=== PATIENT | female | born 1945 | race Caucasian/White ===

== ENCOUNTER 2018-04-02 10:36 | Inpatient (IN) | payer MEDICAID ==
[~2018-04-02] VITALS: Ht 165.1 cm; Wt 72.6 kg
[~2018-04-02 10:36] MED LIST: APRESOLINE50 MG ORAL; ASPIR-LOW81 MG ORAL; BUMETANIDE2 MG ORAL; COUMADIN10 MG ORAL; DOC-Q-LACE100 M1 ORAL; DOCUSATE SODIU100 MG ORAL; ECOTRIN81 MG PO; FERROUS SULFAT325 MG ORAL; FUROSEMIDE40 MG ORAL; FUROSEMIDE40 MG/5 ML ORAL; GLIPIZIDE10 MG PO; GLUCOPHAGE500 MG ORAL; LEVAQUIN500 MG ORAL; LIPITOR80 MG ORAL; LISINOPRIL10 MG ORAL; LISINOPRIL5 MG ORAL; METOLAZONE5 MG PO; NORVASC10 MG ORAL; POTASSIUM CHLO10 MEQ ORAL; POTASSIUM CHLOR8 ME2 PO; PROTONIX40 M2 GT; SODIUM CHLORIDE1 GM PO; SPIRONOLACTONE1 EACH ORAL; VENTOLIN HFA18 GM INH
[2018-04-02 10:40] VITALS: BP 134/73
[2018-04-02] MEDS ORDERED: NS 1000ml 2,200 ML IVLG ONE (11:00)
[2018-04-02 11:07] LABS: HEMATOCRIT 26.5 % (37.0-47.0); HEMOGLOBIN 8.9 G/DL (12.0-16.0); MEAN CORPUSCULAR VOLUME 97 FL (80-99); PLATELET COUNT 63 K/UL (150-450); RED BLOOD COUNT 2.74 M/UL (4.20-5.40); RED CELL DISTRIBUTION WIDTH 16.8 % (11.6-14.8); WHITE BLOOD COUNT 8.5 K/UL (4.8-10.8)
[2018-04-02] MEDS ORDERED: WARFARIN SODIUM2 MG ORAL (11:09)
[2018-04-02] MEDS ORDERED: MIRTAZAPINE15 M3 ORAL (11:09)
[2018-04-02] MEDS ORDERED: CARVEDILOL6.25 MG ORAL (11:09)
[2018-04-02] MEDS ORDERED: LOSARTAN POTASS50 MG ORAL (11:09)
[2018-04-02] MEDS ORDERED: FAMOTIDINE20 MG ORAL (11:09)
[2018-04-02] MEDS ORDERED: CALCITRATE + V1 EACH PO (11:09)
[2018-04-02] MEDS ORDERED: XIFAXAN200 MG ORAL (11:09)
[2018-04-02] MEDS ORDERED: VITAMIN D1000 UNI1 ORAL (11:09)
[2018-04-02 11:17] LABS: ANION GAP 10 mmol/L (5-15); BLOOD UREA NITROGEN 51 mg/dL (7-18); CALCIUM 9.6 MG/DL (8.5-10.1); CARBON DIOXIDE 17 MMOL/L (21-32); CHLORIDE 108 MMOL/L (98-107); CREATININE 3.8 MG/DL (0.55-1.30); POTASSIUM 4.5 MMOL/L (3.5-5.1); SODIUM 135 MMOL/L (136-145)
[2018-04-02 11:21] LABS: APPEARANCE,URINE CLEAR; BILIRUBIN, URINE NEGATIVE (NEGATIVE); COLOR,URINE PALE YELLOW; GLUCOSE, URINE (UA) NEGATIVE (NEGATIVE); KETONES,URINE NEGATIVE (NEGATIVE); LEUKOCYTE ESTERASE ,URINE 3+ (NEGATIVE); NITRITE,URINE NEGATIVE (NEGATIVE); PH,URINE 5 (4.5-8.0); PROTEIN,URINE NEGATIVE (NEGATIVE); UROBILINOGEN,URINE NORMAL MG/DL (0.0-1.0)
[2018-04-02 11:31] LABS: ALANINE AMINOTRANSFERASE 21 U/L (12-78); ALBUMIN 2.6 G/DL (3.4-5.0); ALBUMIN/GLOBULIN RATIO 0.7 (1.0-2.7); ALKALINE PHOSPHATASE 91 U/L (46-116); ASPARTATE AMINO TRANSFERASE 6 U/L (15-37); BILIRUBIN,TOTAL 0.7 MG/DL (0.2-1.0); CREATINE KINASE 61 U/L (26-308)
--- NOTE | 2018-04-02 11:44 | Diagnostic Imaging Report ---
Indication: Altered mental status Technique: Continuous helical CT scanning of the head was performed utilizing automated exposure control without intravenous contrast material. Axial and coronal reconstructions were obtained. Comparison: 12/27/2015 CT dose: Total DLP 1411.27 mGycm; CTDI vol 70.38 mGy Findings: There is no acute intracranial hemorrhage, mass effect or cortical edema. The ventricles, cisterns and sulci are prominent consistent with atrophy. Periventricular hypoattenuation is seen, a nonspecific finding. There are atherosclerotic vascular calcifications. Unchanged calcifications noted along the falx. Visualized mastoid air cells and paranasal sinuses are unremarkable. No focal lesions of the bony calvarium or soft tissues of the scalp are seen. Impression: No evidence of acute intracranial hemorrhage, mass effect or cortical edema. MRI may be obtained for more sensitive evaluation as clinically indicated. Atrophy and nonspecific periventricular hypoattenuation suggestive of chronic ischemic microvascular changes. The CT scanner at [facility] is accredited by the [employer] and the scans are performed using protocols designed to limit radiation exposure to as low as reasonably achievable to attain images of sufficient resolution adequate for diagnostic evaluation.
[2018-04-02 12:00] VITALS: BP 156/86
[2018-04-02] MEDS ORDERED: Lactulose 20gm/30ml UDC ORAL ONE (12:00)
[2018-04-02] MEDS ORDERED: NS 55 ML IV ONE (13:20)
[2018-04-02] MEDS ORDERED: cefTRIAXone 1 GM in NS 55 ML IVPB ONE (13:30)
[2018-04-02] MEDS ORDERED: Zolpidem 5mg tab ORAL PRN (13:45)
[2018-04-02] MEDS ORDERED: LORazepam Inj 2mg/ml 1ml IV PRN (13:45)
[2018-04-02] MEDS ORDERED: Miralax 17gm pkt ORAL PRN (13:45)
[2018-04-02] MEDS ORDERED: Mylanta II UD 30ml ORAL PRN (13:45)
[2018-04-02] MEDS ORDERED: Morphine Sulfate 2mg/ml Inj IVP PRN (13:45)
[2018-04-02 14:00] VITALS: BP 142/83
--- NOTE | 2018-04-02 14:54 | Diagnostic Imaging Report ---
Indication: Weakness Technique: XRAY Chest 1v Comparison: 12/27/2015 Findings: Stable cardiomegaly. Dual-lead pacemaker is again noted. There is slight interval change in positioning of pacemaker leads which may be related to images and patient rotation. Correlate clinically to ensure appropriate pacemaker functioning. There is no definite focal airspace consolidation. No pleural effusion or pneumothorax. No acute osseous abnormality. IMPRESSION: Indwelling left-sided dual-lead pacemaker. Apparent interval change in positioning of pacemaker leads compared to the prior exam may be artifactual related to patient rotation on today's exam. Correlate clinically to ensure appropriate pacemaker functioning. Stable cardiomegaly. No focal airspace consolidation, pleural effusion or pneumothorax. No suggestive of pulmonary edema.
--- NOTE | 2018-04-02 15:08 | Emergency Room Report ---
History of Present Illness General Chief Complaint: Altered Level of Consciousness Source: Patient, EMS Present Illness HPI This patient is brought in by her daughter. She has many medical problems to include a cirrhosis and kidney disease. She is brought in by her daughter for altered mental status. Reports that she has recently been admitted to [facility]. She was also in a prison facility. However, she is now at home and she is the primary caregiver. She feels that she can care for her. She has been home for about 3 weeks. She reports that over the past couple days she has been more altered. The patient herself has no specific complaints. There is no report of fever or chills. There is no nausea or vomiting. There are no other complaints. Allergies: Coded Allergies: No Known Allergies (Unverified , 10/04/15) Patient History Past Medical History: see triage record, DM, HTN, CHF, other - Cirrhosis Past Surgical History: pacemaker Social History: Denies: smoking, alcohol use, drug use Reviewed Nursing Documentation: PMH: Agreed; PSxH: Agreed Nursing Documentation-PMH Past Medical History: No History, Except For Hx Cardiac Problems: Yes - CHF, high cholesterol, Hx Hypertension: Yes Hx Pacemaker: No - ANEMIA Hx Asthma: No Hx Diabetes: Yes Hx Cancer: No Hx Gastrointestinal Problems: Yes - cirrosis Hx Neurological Problems: No Review of Systems All Other Systems: negative except mentioned in HPI Physical Exam Vital Signs Date Time Temp Pulse Resp B/P (MAP) Pulse Ox O2 Delivery O2 Flow Rate FiO2 18 10:31 97.9 72 18 128/65 100 Room Air Sp02 EP Interpretation: reviewed, normal General Appearance: no apparent distress, GCS 15, non-toxic, lethargic - but arousable to simple questions., obese Head: normocephalic, atraumatic Eyes: bilateral eye normal inspection, bilateral eye PERRL ENT: hearing grossly normal, normal pharynx, no angioedema, normal voice Neck: full range of motion, supple/symm/no masses Respiratory: chest non-tender, lungs clear, normal breath sounds, no respiratory distress, no retraction, no accessory muscle use, speaking full sentences Cardiovascular #1: regular rate, rhythm, no edema Gastrointestinal: normal bowel sounds, non tender, soft, non-distended, no guarding, no rebound Rectal: deferred Musculoskeletal: back normal, gait/station normal, normal range of motion, non- tender, calf tenderness Neurologic: responsive, sensory intact, speech normal, grossly normal Psychiatric: mood/affect normal, no suicidal/homicidal ideation Skin: normal color, no rash, warm/dry, well hydrated Medical Decision Making Diagnostic Impression: Primary Impression: Hepatic encephalopathy Additional Impressions: Renal failure Hyperglycemia Elevated troponin UTI (urinary tract infection) ER Course This patient has hepatic encephalopathy. The patient's ammonia is 149. The patient also has renal failure. 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 She is also hyperglycemic. I suspect this patient has undiagnosed diabetes. The daughter states that she is not on any diabetic medications. The patient's troponin is elevated. The patient is in renal failure and this may be artifactual versus an NSTEMI. The patient also has a urinary tract infection and was given antibiotics. This patient has a very complicated baseline. She has a very poor prognosis. She is admitted for hepatic encephalopathy and renal failure and elevated troponin. This patient is critically ill. This patient required complex medical decision- making, aggressive intervention, extensive laboratory workup and monitoring. Critical care time: 40 minutes. Please note that this Emergency Department Report was dictated using [employer] technology software, occasionally this can lead to erroneous entry secondary to interpretation by the dictation equipment. Laboratory Tests Test 04/02/18 10:50 04/02/18 11:12 04/02/18 11:50 White Blood Count 8.5 K/UL (4.8-10.8) Red Blood Count 2.74 M/UL (4.20-5.40) L Hemoglobin 8.9 G/DL (12.0-16.0) L Hematocrit 26.5 % (37.0-47.0) L Mean Corpuscular Volume 97 FL (80-99) Mean Corpuscular Hemoglobin 32.4 PG (27.0-31.0) H Mean Corpuscular Hemoglobin Concent 33.5 G/DL (32.0-36.0) Red Cell Distribution Width 16.8 % (11.6-14.8) H Platelet Count 63 K/UL (150-450) L Mean Platelet Volume 9.5 FL (6.5-10.1) Neutrophils (%) (Auto) % (45.0-75.0) Lymphocytes (%) (Auto) % (20.0-45.0) Monocytes (%) (Auto) % (1.0-10.0) Eosinophils (%) (Auto) % (0.0-3.0) Basophils (%) (Auto) % (0.0-2.0) Differential Total Cells Counted 100 Neutrophils % (Manual) 72 % (45-75) Lymphocytes % (Manual) 11 % (20-45) L Monocytes % (Manual) 5 % (1-10) Eosinophils % (Manual) 12 % (0-3) H Basophils % (Manual) 0 % (0-2) Band Neutrophils 0 % (0-8) Platelet Estimate Decreased L Platelet Morphology Normal Hypochromasia 1+ Anisocytosis 1+ Sodium Level 135 MMOL/L (136-145) L Potassium Level 4.5 MMOL/L (3.5-5.1) Chloride Level 108 MMOL/L (98-107) H Carbon Dioxide Level 17 MMOL/L (21-32) L Anion Gap 10 mmol/L (5-15) Blood Urea Nitrogen 51 mg/dL (7-18) H Creatinine 3.8 MG/DL (0.55-1.30) H Estimate Glomerular Filtration Rate mL/min (>60) Glucose Level 260 MG/DL (74-106) H Lactic Acid Level 2.30 mmol/L (0.4-2.0) H 2.10 mmol/L (0.66-2.22) Calcium Level 9.6 MG/DL (8.5-10.1) Total Bilirubin 0.7 MG/DL (0.2-1.0) Aspartate Amino Transferase (AST) 6 U/L (15-37) L Alanine Aminotransferase (ALT) 21 U/L (12-78) Alkaline Phosphatase 91 U/L (46-116) Ammonia 149 umol/L (11-32) H Total Creatine Kinase 61 U/L (26-308) Creatine Kinase MB 1.0 NG/ML (0.0-3.6) Creatine Kinase MB Relative Index 1.6 Troponin I 0.079 ng/mL (0.000-0.056) Total Protein 6.3 G/DL (6.4-8.2) L Albumin 2.6 G/DL (3.4-5.0) L Globulin 3.7 g/dL Albumin/Globulin Ratio 0.7 (1.0-2.7) L Urine Color Pale yellow Urine Appearance Clear Urine pH 5 (4.5-8.0) Urine Specific Crawford 1.010 (1.005-1.035) Urine Protein Negative (NEGATIVE) Urine Glucose (UA) Negative (NEGATIVE) Urine Ketones Negative (NEGATIVE) Urine Blood 2+ (NEGATIVE) H Urine Nitrite Negative (NEGATIVE) Urine Bilirubin Negative (NEGATIVE) Urine Urobilinogen Normal MG/DL (0.0-1.0) Urine Leukocyte Esterase 3+ (NEGATIVE) H Urine RBC 2-4 /HPF (0 - 2) H Urine WBC 10-15 /HPF (0 - 2) H Urine Squamous Epithelial Cells Few /LPF (NONE/OCC) Urine Bacteria Few /HPF (NONE) Microbiology Date/Time Source Procedure Growth Status 04/02/18 11:50 Nasal Nares Influenza Types A,B Antigen (ELIZA) - Final Complete EKG Diagnostic Results Rate: normal Rhythm: other - Paced ST Segments: no acute changes Rhythm Strip Diag. Results EP Interpretation: yes Rate: 70 Rhythm: no PVC's, no ectopy, other - Paced Chest X-Ray Diagnostic Results Chest X-Ray Diagnostic Results : Chest X-Ray Ordered: Yes # of Views/Limited/Complete: 1 View Indication: Other EP Interpretation: Yes Interpretation: no consolidation, no effusion, no pneumothorax, no acute cardiopulmonary disease Impression: No acute disease Electronically Signed by: Catrina Desir DO CT/MRI/US Diagnostic Results CT/MRI/US Diagnostic Results : Imaging Test Ordered: CT head Impression No acute findings. Specifically no intracranial bleed, mass effect or edema. See official report. Last Vital Signs Date Time Temp Pulse Resp B/P (MAP) Pulse Ox O2 Delivery O2 Flow Rate FiO2 04/02/18 12:00 72 17 156/86 100 Room Air 04/02/18 10:40 98.4 Disposition: ADMITTED INPATIENT Condition: Serious Referrals: [facility],REFERRING (PCP) Catrina Desir DO Apr 02, 2018 15:08
[2018-04-02 15:23] LABS: INR 2.9 (0.9-1.1)
[2018-04-02 15:45] VITALS: BP 144/74
[2018-04-02 16:44] LABS: CREATINE KINASE 81 U/L (26-308)
[2018-04-02] MEDS: Lactulose 20gm/30ml UDC ORAL SCH (18:15)
[2018-04-02] MEDS: Cefepime HCl 1 GM in D5W 55 ML IV SCH (18:15)
[2018-04-02 20:00] VITALS: BP 110/75
[2018-04-02] MEDS: Carvedilol 6.25mg Tab ORAL SCH (21:10)
[2018-04-03] VITALS: BP 126/65
[2018-04-03] MEDS: Lactulose 20gm/30ml UDC ORAL SCH ×4 (00:21→18:28)
[2018-04-03 04:00] VITALS: BP 152/64
[2018-04-03 05:56] LABS: HEMATOCRIT 28.8 % (37.0-47.0); HEMOGLOBIN 9.5 G/DL (12.0-16.0); MEAN CORPUSCULAR VOLUME 97 FL (80-99); PLATELET COUNT 64 K/UL (150-450); RED BLOOD COUNT 2.98 M/UL (4.20-5.40); RED CELL DISTRIBUTION WIDTH 17.2 % (11.6-14.8); WHITE BLOOD COUNT 8.6 K/UL (4.8-10.8)
[2018-04-03 06:10] LABS: ANION GAP 14 mmol/L (5-15); BLOOD UREA NITROGEN 53 mg/dL (7-18); CALCIUM 9.2 MG/DL (8.5-10.1); CARBON DIOXIDE 14 MMOL/L (21-32); CHLORIDE 112 MMOL/L (98-107); CREATININE 3.6 MG/DL (0.55-1.30); POTASSIUM 4.2 MMOL/L (3.5-5.1); SODIUM 140 MMOL/L (136-145)
[2018-04-03 06:13] LABS: AMMONIA 91 umol/L (11-32)
[2018-04-03 06:25] LABS: ALANINE AMINOTRANSFERASE 13 U/L (12-78); ALBUMIN 2.5 G/DL (3.4-5.0); ALBUMIN/GLOBULIN RATIO 0.8 (1.0-2.7); ALKALINE PHOSPHATASE 85 U/L (46-116); ASPARTATE AMINO TRANSFERASE 15 U/L (15-37); BILIRUBIN,TOTAL 0.7 MG/DL (0.2-1.0); CHOLESTEROL 54 MG/DL (< 200); HDL CHOLESTEROL 27 MG/DL (40-60); TRIGLYCERIDES 47 MG/DL (30-150)
[2018-04-03 08:00] VITALS: BP 130/90
[2018-04-03] MEDS ORDERED: HydrALAZINE 50mg tab ORAL SCH (09:00)
[2018-04-03] MEDS ORDERED: Phytonadione 10 mg/mL 1ml amp SUBQ ONE (10:00)
[2018-04-03] MEDS: Carvedilol 6.25mg Tab ORAL SCH ×2 (10:54→21:03)
[2018-04-03 12:00] VITALS: BP 149/122
[2018-04-03] MEDS: NovoLOG Insulin Flexpen SUBQ SCH ×3 (12:34→21:05)
--- NOTE | 2018-04-03 14:42 | GI Initial Consult Note ---
History of Present Illness General Date patient seen: Apr 03, 2018 Time patient seen: 14:37 Reason for Hospitalization: Altered Level of Consciousness Referring physician: ANNALISA HALL Reason for Consultation: Hepatic encephalopathy Present Illness HPI This patient is brought in by her daughter. She has many medical problems to include a cirrhosis and kidney disease. She is brought in by her daughter for altered mental status. Reports that she has recently been admitted to [facility]. She was also in a correction facility. However, she is now at home and she is the primary caregiver. She feels that she can care for her. She has been home for about 3 weeks. She reports that over the past couple days she has been more altered. The patient herself has no specific complaints. There is no report of fever or chills. There is no nausea or vomiting. There are no other complaints. GI consulted for hepatic encephalopathy. EVA sanders, JAVI. Daughter at bedside stated that the patient has a history of nonalcoholic cirrhosis. Was told by a doctor during a recent admission to [facility] to stop the lactulose. The patient was off of the lactulose for approximately 4 days, developed encephalopathy as a result. The daughter states that the patient had a recent abdominal ultrasound approximately 2 weeks ago. Unknown history of endoscopic colonoscopy at this time. Patient presents today with anemia, hyper coagulopathy and elevated alkaline phosphatase. No transaminitis noted. The patient's daughter is unsure if she is diabetic. Home Meds Reported Medications Warfarin Sod* (WARFARIN SOD*) 2 Mg Tablet, 2 MG ORAL DAILY, TAB 04/02/18 Rifaximin* (XIFAXAN*) 200 Mg Tablet, 200 MG ORAL THREE TIMES A DAY for 30 Days, MG 0 Refills 04/02/18 Mirtazapine* (MIRTAZAPINE*) 15 Mg Tablet, 15 MG ORAL BEDTIME, TAB 04/02/18 Losartan Potassium* (LOSARTAN POTASSIUM*) 50 Mg Tablet, 50 MG ORAL DAILY, TAB 04/02/18 Famotidine (FAMOTIDINE) 20 Mg Tablet, 20 MG ORAL DAILY, #30 TAB 0 Refills 04/02/18 Cholecalciferol (Vitamin D3)* (VITAMIN D*) 1,000 Unit Tablet, 2000 UNITS ORAL DAILY, #30 TAB 0 Refills 04/02/18 Carvedilol* (CARVEDILOL*) 6.25 Mg Tablet, 6.25 MG ORAL EVERY 12 HOURS, TAB 04/02/18 Calcium Citrate/Vitamin D3 (CALCITRATE + VIT D CAPLET) 1 Each Tablet, 1 EACH PO , TAB 04/02/18 Spironolact/Hydrochlorothiazid (SPIRONOLACTONE-HCTZ 25-25 TAB) 1 Each Tablet, 1 TAB ORAL TWICE A DAY, TAB 12/27/15 Bumetanide* (BUMETANIDE*) 2 Mg Tablet, 2 MG ORAL DAILY, TAB 12/27/15 Pantoprazole Sodium (Protonix) 40 Mg Granpkt.dr, 40 MG GT DAILY, PKT 12/27/15 Warfarin Sod* (COUMADIN*) 10 Mg Tablet, 10 MG ORAL TWICE A DAY, TAB 12/27/15 Metformin Hcl* (GLUCOPHAGE*) 500 Mg Tablet, 500 MG ORAL TWICE A DAY, #60 TAB 10/17/15 Lisinopril* (LISINOPRIL*) 10 Mg Tablet, 10 MG ORAL DAILY, TAB 10/16/15 Ferrous Sulfate* (FERROUS SULFATE*) 325 Mg Tablet, 325 MG ORAL THREE TIMES A DAY , #30 TAB 0 Refills 10/16/15 Potassium Chloride* (K-DUR*) 10 Meq Capsule.er, 10 MEQ ORAL DAILY, #7 TAB 0 Refills 10/06/15 Docusate Sodium* (DOCUSATE SODIUM*) 100 Mg Capsule, 100 MG ORAL TWICE A DAY, CAP 10/06/15 Aspirin (ECOTRIN) 81 Mg Tablet.dr, 81 MG PO DAILY, TAB 10/06/15 Albuterol Sulfate (VENTOLIN HFA) 18 Gm Hfa.aer.ad, 2 PUFFS INH EVERY 6 HOURS, # 18 GM 0 Refills 10/04/15 Hydralazine HCl (Hydralazine HCl) 50 Mg Tablet, 50 MG ORAL DAILY, TAB 10/04/15 Amlodipine Besylate (Norvasc) 10 Mg Tablet, 5 MG ORAL DAILY, TAB 10/04/15 Docusate Sodium (DOC-Q-LACE) 100 Mg Capsule, 100 MG ORAL DAILY, #30 CAP 0 Refills 10/04/15 Glipizide (GLIPIZIDE) 10 Mg Tablet, 10 MG PO, TAB 10/04/15 Furosemide (FUROSEMIDE) 40 Mg/5 Ml Solution, 80 MG ORAL DAILY, ML 10/04/15 Atorvastatin (Lipitor) 80 Mg Tablet, 80 MG ORAL BEDTIME, #30 TAB 0 Refills 10/04/15 Metolazone (METOLAZONE) 5 Mg Tablet, 5 MG PO, TAB 10/04/15 Med list reviewed/reconciled: Yes Allergies: Coded Allergies: No Known Allergies (Unverified , 10/04/15) Patient History History Provided By: Family Member, Medical Record PMH Narrative Past Medical History: see triage record, DM, HTN, CHF, other - Cirrhosis Past Surgical History: pacemaker Social History: Denies: smoking, alcohol use, drug use Reviewed Nursing Documentation: PMH: Agreed; PSxH: Agreed Nursing Documentation-PMH Past Medical History: No History, Except For Hx Cardiac Problems: Yes - CHF, high cholesterol, Hx Hypertension: Yes Hx Pacemaker: No - ANEMIA Hx Asthma: No Hx Diabetes: Yes Hx Cancer: No Hx Gastrointestinal Problems: Yes - cirrosis Hx Neurological Problems: No Social History: Denies: smoking, alcohol use, drug use, other Review of Systems All Other Systems: negative except mentioned in HPI Physical Exam Vital Signs Date Time Temp Pulse Resp B/P (MAP) Pulse Ox O2 Delivery O2 Flow Rate FiO2 04/02/18 10:31 97.9 72 18 128/65 100 Room Air Sp02 EP Interpretation: reviewed, normal Labs Laboratory Tests Test 04/03/18 05:40 White Blood Count 8.6 K/UL (4.8-10.8) Red Blood Count 2.98 M/UL (4.20-5.40) L Hemoglobin 9.5 G/DL (12.0-16.0) L Hematocrit 28.8 % (37.0-47.0) L Mean Corpuscular Volume 97 FL (80-99) Mean Corpuscular Hemoglobin 31.8 PG (27.0-31.0) H Mean Corpuscular Hemoglobin Concent 32.9 G/DL (32.0-36.0) Red Cell Distribution Width 17.2 % (11.6-14.8) H Platelet Count 64 K/UL (150-450) L Mean Platelet Volume 8.8 FL (6.5-10.1) Neutrophils (%) (Auto) % (45.0-75.0) Lymphocytes (%) (Auto) % (20.0-45.0) Monocytes (%) (Auto) % (1.0-10.0) Eosinophils (%) (Auto) % (0.0-3.0) Basophils (%) (Auto) % (0.0-2.0) Sodium Level 140 MMOL/L (136-145) Potassium Level 4.2 MMOL/L (3.5-5.1) Chloride Level 112 MMOL/L (98-107) H Carbon Dioxide Level 14 MMOL/L (21-32) L Anion Gap 14 mmol/L (5-15) Blood Urea Nitrogen 53 mg/dL (7-18) H Creatinine 3.6 MG/DL (0.55-1.30) H Estimat Glomerular Filtration Rate mL/min (>60) Glucose Level 221 MG/DL (74-106) H Calcium Level 9.2 MG/DL (8.5-10.1) Total Bilirubin 0.7 MG/DL (0.2-1.0) Aspartate Amino Transf (AST/SGOT) 15 U/L (15-37) Alanine Aminotransferase (ALT/SGPT) 13 U/L (12-78) Alkaline Phosphatase 85 U/L (46-116) Ammonia 91 umol/L (11-32) H Total Protein 5.8 G/DL (6.4-8.2) L Albumin 2.5 G/DL (3.4-5.0) L Globulin 3.3 g/dL Albumin/Globulin Ratio 0.8 (1.0-2.7) L Triglycerides Level 47 MG/DL (30-150) Cholesterol Level 54 MG/DL (< 200) LDL Cholesterol 32 mg/dL (<100) HDL Cholesterol 27 MG/DL (40-60) L Cholesterol/HDL Ratio 2.0 (3.3-4.4) L Thyroid Stimulating Hormone (TSH) 2.053 uiU/mL (0.358-3.740) General Appearance: well appearing, no apparent distress, alert Head: normocephalic EENT: PERRL/EOMI, normal ENT inspection Neck: supple Respiratory: normal breath sounds, no respiratory distress Cardiovascular: normal rate Gastrointestinal: normal inspection, non tender, soft, normal bowel sounds, non -distended Rectal: deferred Genitourinary: no CVA tenderness Musculoskeletal: normal inspection, back normal Neurologic: alert Skin: normal inspection, normal color, no rash, warm/dry, palpation normal, well hydrated Lymphatic: normal inspection, no adenopathy Current Medications Current Medications Medications (Trade) Dose Ordered Sig/Anum Route PRN Reason Start Time Stop Time Status Last Admin Dose Admin Acetaminophen (Tylenol) 650 mg Q4H PRN ORAL fever 04/02/18 13:45 05/02/18 13:44 Al Hydroxide/Mg Hydroxide (Mylanta II) 30 ml Q6H PRN ORAL dyspepsia 04/02/18 13:45 05/02/18 13:44 Amlodipine Besylate (Norvasc) 5 mg DAILY ORAL 04/03/18 09:00 05/03/18 08:59 04/03/18 10:54 Carvedilol (Coreg) 6.25 mg EVERY 12 HOURS ORAL 04/02/18 21:00 05/02/18 20:59 04/03/18 10:54 Cefepime HCl 1 gm/ Dextrose 55 ml @ 110 mls/hr Q24H IV 04/02/18 17:00 04/09/18 16:59 04/02/18 18:15 Dextrose (Dextrose 50%) 25 ml Q30M PRN IV Hypoglycemia 04/03/18 07:15 05/03/18 07:14 Dextrose (Dextrose 50%) 50 ml Q30M PRN IV Hypoglycemia 04/03/18 07:15 05/03/18 07:14 Hydralazine HCl (Apresoline) 50 mg DAILY ORAL 04/03/18 09:00 05/03/18 08:59 04/03/18 14:17 Insulin Aspart (NovoLOG) BEFORE MEALS AND HS SUBQ 04/03/18 11:30 05/03/18 11:29 04/03/18 12:34 Lactulose (Cephulac) 30 gm Q6HR ORAL 04/02/18 18:00 05/02/18 17:59 04/03/18 05:40 Lorazepam (Ativan 2mg/ml 1ml) 0.5 mg Q4H PRN IV For Anxiety 04/02/18 13:45 04/09/18 13:44 Mirtazapine (Remeron) 15 mg BEDTIME ORAL 04/02/18 21:00 05/02/18 20:59 04/02/18 21:10 Morphine Sulfate (Morphine Sulfate) 2 mg Q4H PRN IVP For Pain 04/02/18 13:45 04/09/18 13:44 Ondansetron HCl (Zofran) 4 mg Q6H PRN IVP Nausea & Vomiting 04/02/18 13:45 05/02/18 13:44 Polyethylene Glycol (Miralax) 17 gm HSPRN PRN ORAL Constipation 04/02/18 13:45 05/02/18 13:44 Zolpidem Tartrate (Ambien) 5 mg HSPRN PRN ORAL Insomnia 04/02/18 13:45 04/09/18 13:44 GI: Plan Problems: (1) Liver cirrhosis (2) Hypoalbuminemia (3) Hepatic encephalopathy (4) Hyperglycemia Plan Patient to be scheduled for paracentesis, send out to rule out SBP. Continue the patient on lactulose 30 mg 3 times daily, add Xifaxan 550 mg twice daily anemia work up OB stool r/o GI bleed monitor H&H, prn transfusions bowel regime ppi fu labs, ammonia levels, HG A1c, hepatitis panel Discussed with Dr. Frausto. Thank you for this patient referral, we will follow. The patient was seen and examined at bedside and all new and available data was reviewed in the patients chart. I agree with the above findings, impression and plan. (Patient seen earlier today. Signature stamp does not reflect patient encounter time.). - MD Sanjuanita WingBanner Casa Grande Medical CenterRayray OSEI Apr 03, 2018 14:42
[2018-04-03 16:00] VITALS: BP 111/49
--- NOTE | 2018-04-03 16:25 | History & Physical ---
History and Physical History & Physicial Dictated for Int Med-Dr Clay no. [id number] Amandeep Arce MD Apr 03, 2018 16:25
[2018-04-03] MEDS: Cefepime HCl 1 GM in D5W 55 ML IV SCH (17:49)
--- NOTE | 2018-04-03 18:24 | Consultation ---
Consult Note Consult Note HPI This patient is brought in by her daughter. She has many medical problems to include a cirrhosis and kidney disease. She is brought in by her daughter for altered mental status. Reports that she has recently been admitted to [facility]. She was also in a intermediate facility. However, she is now at home and she is the primary caregiver. She feels that she can care for her. She has been home for about 3 weeks. She reports that over the past couple days she has been more altered. The patient herself has no specific complaints. There is no report of fever or chills. There is no nausea or vomiting. There are no other complaints. No Known Allergies (Unverified , 10/04/15) Past Medical History: see triage record, DM, HTN, CHF, other - Cirrhosis Past Surgical History: pacemaker Social History: Denies: smoking, alcohol use, drug use Reviewed Nursing Documentation: PMH: Agreed; PSxH: Agreed Past Medical History: No History, Except For Hx Cardiac Problems: Yes - CHF, high cholesterol, Hx Hypertension: Yes Hx Pacemaker: No - ANEMIA Hx Diabetes: Yes Hx Gastrointestinal Problems: Yes - cirrosis examined data reviewed Assessment/Plan Renal failure- acute on Chronic Diabetic nephropathy Anemia of CKD Pacer Pacer Metabolic encephalopathy DM OOC Elevated Troponin Cellulitis and PVD legs UTI Devlin keep BP and BS under control Anemia dhaliwal Avoid nephrotoxics [facility] discussed with Elie Cam MD Apr 03, 2018 18:24
[2018-04-03 20:00] VITALS: BP 115/52
--- NOTE | 2018-04-03 22:00 | History and Physical Report ---
DATE OF ADMISSION: 04/02/2018 CHIEF COMPLAINT: The patient is a 72-year-old female with history of chronic renal failure and cirrhosis, who presents with a chief complaint of altered mental status. HISTORY OF PRESENT ILLNESS: The patient has a history of cirrhosis of liver. The patient also has a history of chronic renal failure. The patient apparently was at [facility] in February for pneumonia. The patient was discharged home. The patient's son is at the bedside. The son states the patient became altered yesterday. The patient was alert and oriented to self only. The patient was transferred to [facility] for evaluation. The patient is admitted for altered mental status, rule out hepatic encephalopathy. REVIEW OF SYSTEMS: Unable to assess secondary to the patient's mental status. PAST MEDICAL HISTORY: Significant for; 1. Hypertension. 2. Diabetes type 2. 3. Chronic renal failure. 4. Anemia. 5. Cirrhosis of liver. PAST SURGICAL HISTORY: Significant for pacemaker implantation. CURRENT MEDICATIONS: 1. Atorvastatin 40 mg p.o. daily. 2. Bumetanide 1 mg p.o. daily. 3. Calcium carbonate plus vitamin D one tablet p.o. twice daily. 4. Carvedilol 6.25 mg p.o. twice daily. 5. Vitamin D 2000 international units p.o. daily. 6. Pepcid 20 mg p.o. daily. 7. Iron sulfate 325 mg p.o. daily. 8. Lactulose 20 mg p.o. 3 times daily. 9. Losartan 50 mg p.o. daily. 10. Mirtazapine 15 mg p.o. at bedtime. 11. Zofran 4 mg p.o. q.8 hours. 12. Rifaximin 200 mg p.o. 3 tablets p.o. twice daily. 13. Coumadin 2 mg p.o. daily. ALLERGIES: No known drug allergies. SOCIAL HISTORY: The patient is a . The patient lives with her adult daughter. The patient lives in [place] with her daughter. The patient denies tobacco or alcohol use. PHYSICAL EXAMINATION: VITAL SIGNS: Temperature 98.1, respirations 20, pulse 70, and blood pressure 110/75. GENERAL: The patient is a well-developed and well-nourished, obese, female, in no apparent distress. HEENT: Eyes, pupils equal and responsive to light and accommodation. Extraocular movements are intact. NECK: Supple without lymphadenopathy. CHEST: Lungs are clear to auscultation bilaterally without wheezes or rales. CARDIOVASCULAR: Regular rhythm and rate. S1 and S2 normal without murmurs, rubs, or gallops. ABDOMEN: Soft, nontender, and nondistended. Positive bowel sounds. No evidence of hepatosplenomegaly. Currently, no rebound or guarding noted. EXTREMITIES: Negative for clubbing, cyanosis, or edema. RECTAL/GENITAL: Refused. NEUROLOGIC: Cranial nerves II through XII are grossly intact without focal deficits. Motor strength is 5/5 bilaterally. Deep tendon reflexes are 2+ plantar. LABORATORY STUDIES: WBC 8.5, hemoglobin 8.9, hematocrit 26.5, and platelets 63,000, sodium 135, potassium 4.5, chloride 108, CO2 17, BUN 51, creatinine 3.8, and glucose 260. Troponin elevated at 0.079. Chest x-ray reported as consistent with pulmonary edema. Head CT showed no acute disease. Ammonia level is elevated at 149. ASSESSMENT: This is a 72-year-old female. 1. Altered mental status. 2. Hepatic encephalopathy. 3. Diabetes, type 2. 4. Atrial fibrillation. 5. Hypertension. 6. Congestive heart failure, [place] Heart Association class III. 7. Chronic renal failure, stage 3. 8. Cirrhosis of liver. TREATMENT: 1. Cirrhosis of liver/hepatic encephalopathy. A Gastroenterology consultation has been obtained with Dr. Liam Frausto. We will follow recommendations of Gastroenterology. 2. Altered mental status. This may be secondary to hepatic encephalopathy versus sepsis. We will follow recommendations of Gastroenterology. 3. Diabetes, type 2. The patient is currently off antihyperglycemic medication. 4. Atrial fibrillation. Continue Coumadin as above. 5. Hypertension. Continue losartan as above. 6. Congestive heart failure, [place] Heart Association class III. 7. Chronic renal failure, stage 3. A Nephrology consultation has been obtained with Dr. Brooks. Amandeep Arce M.D. DR: SASHA JOB#: [id number] CC:
[2018-04-03] MEDS: HydrALAZINE 10mg Tab ORAL SCH (22:13)
--- NOTE | 2018-04-03 23:36 | Consultation ---
History of Present Illness General Chief Complaint: Altered Level of Consciousness Referring physician: ANNALISA HALL Reason for Consultation: Hepatic encephalopathy Present Illness HPI 72-year-old female with history of depression anxiety chronic renal failure and cirrhosis, who presents with a chief complaint of altered mental status. the pt has been confused family in room the pt has waxing and waning of consciousness. the pt has memory impairment. Allergies: Coded Allergies: No Known Allergies (Unverified , 10/04/15) Medication History Scheduled Albuterol Sulfate (Ventolin Hfa), 2 PUFFS INH EVERY 6 HOURS, (Reported) Amlodipine Besylate (Norvasc), 5 MG ORAL DAILY, (Reported) Aspirin (Ecotrin), 81 MG PO DAILY, (Reported) Atorvastatin (Lipitor), 80 MG ORAL BEDTIME, (Reported) Bumetanide* (Bumetanide*), 2 MG ORAL DAILY, (Reported) Carvedilol* (Carvedilol*), 6.25 MG ORAL EVERY 12 HOURS, (Reported) Cholecalciferol (Vitamin D3)* (Vitamin D*), 2,000 UNITS ORAL DAILY, (Reported) Docusate Sodium (Doc-Q-Lace), 100 MG ORAL DAILY, (Reported) Docusate Sodium* (Docusate Sodium*), 100 MG ORAL TWICE A DAY, (Reported) Famotidine (Famotidine), 20 MG ORAL DAILY, (Reported) Ferrous Sulfate* (Ferrous Sulfate*), 325 MG ORAL THREE TIMES A DAY, (Reported) Furosemide (Furosemide), 80 MG ORAL DAILY, (Reported) Hydralazine HCl (Hydralazine HCl), 50 MG ORAL DAILY, (Reported) Lisinopril* (Lisinopril*), 10 MG ORAL DAILY, (Reported) Losartan Potassium* (Losartan Potassium*), 50 MG ORAL DAILY, (Reported) Metformin Hcl* (Glucophage*), 500 MG ORAL TWICE A DAY, (Reported) Mirtazapine* (Mirtazapine*), 15 MG ORAL BEDTIME, (Reported) Pantoprazole Sodium (Protonix), 40 MG GT DAILY, (Reported) Potassium Chloride* (K-Dur*), 10 MEQ ORAL DAILY, (Reported) Rifaximin* (Xifaxan*), 200 MG ORAL THREE TIMES A DAY, (Reported) Spironolact/Hydrochlorothiazid (Spironolactone-Hctz 25-25 Tab), 1 TAB ORAL TWICE A DAY, (Reported) Warfarin Sod* (Coumadin*), 10 MG ORAL TWICE A DAY, (Reported) Warfarin Sod* (Warfarin Sod*), 2 MG ORAL DAILY, (Reported) Miscellaneous Medications Calcium Citrate/Vitamin D3 (Calcitrate + Vit D Caplet), 1 EACH PO, (Reported) Glipizide (Glipizide), 10 MG PO, (Reported) Metolazone (Metolazone), 5 MG PO, (Reported) Patient History Limited by: medical condition History Provided By: Family Member, Medical Record, PMD Healthcare decision maker Resuscitation status Full Code Advanced Directive on File No Past Medical/Surgical History Past Medical/Surgical History: (1) Decreased urine volume (2) Congestive heart failure (3) Hyponatremia (4) Hypoglycemia (5) ARF (acute renal failure) (6) Anemia (7) CHF (congestive heart failure) (8) Venous stasis of both lower extremities (9) HTN (hypertension) (10) Hyperglycemia (11) Renal failure (12) UTI (urinary tract infection) (13) Elevated troponin (14) Hepatic encephalopathy (15) Liver cirrhosis (16) Hypoalbuminemia Review of Systems Psychiatric: Reports: anxiety, depressed feelings Physical Exam General Appearance: confused, mild distress, agitated Last 24 Hour Vital Signs Date Time Temp Pulse Resp B/P (MAP) Pulse Ox O2 Delivery O2 Flow Rate FiO2 04/03/18 22:13 136/54 04/03/18 21:03 98 115/52 04/03/18 20:00 97.7 77 18 115/52 (73) 98 04/03/18 20:00 72 04/03/18 16:11 71 04/03/18 16:00 97.8 71 18 111/49 (69) 99 04/03/18 14:17 149/122 04/03/18 12:00 98.3 75 16 149/122 (131) 97 04/03/18 11:40 70 04/03/18 10:54 73 130/90 04/03/18 10:54 73 130/90 04/03/18 08:30 Room Air 04/03/18 08:00 97.7 73 16 130/90 (103) 98 04/03/18 07:45 71 04/03/18 04:00 71 04/03/18 04:00 98.2 72 19 152/64 (93) 99 04/03/18 00:00 70 04/03/18 00:00 97.6 71 19 126/65 (85) 100 Intake and Output 04/02/18 04/03/18 19:00 07:00 Intake Total 2255 ml Balance 2255 ml IV Total 2255 ml # Voids 3 2 # Bowel Movements 4 4 Laboratory Tests Test 04/03/18 05:40 04/03/18 06:40 White Blood Count 8.6 K/UL (4.8-10.8) Red Blood Count 2.98 M/UL (4.20-5.40) L Hemoglobin 9.5 G/DL (12.0-16.0) L Hematocrit 28.8 % (37.0-47.0) L Mean Corpuscular Volume 97 FL (80-99) Mean Corpuscular Hemoglobin 31.8 PG (27.0-31.0) H Mean Corpuscular Hemoglobin Concent 32.9 G/DL (32.0-36.0) Red Cell Distribution Width 17.2 % (11.6-14.8) H Platelet Count 64 K/UL (150-450) L Mean Platelet Volume 8.8 FL (6.5-10.1) Neutrophils (%) (Auto) % (45.0-75.0) Lymphocytes (%) (Auto) % (20.0-45.0) Monocytes (%) (Auto) % (1.0-10.0) Eosinophils (%) (Auto) % (0.0-3.0) Basophils (%) (Auto) % (0.0-2.0) Sodium Level 140 MMOL/L (136-145) Potassium Level 4.2 MMOL/L (3.5-5.1) Chloride Level 112 MMOL/L (98-107) H Carbon Dioxide Level 14 MMOL/L (21-32) L Anion Gap 14 mmol/L (5-15) Blood Urea Nitrogen 53 mg/dL (7-18) H Creatinine 3.6 MG/DL (0.55-1.30) H Estimat Glomerular Filtration Rate mL/min (>60) Glucose Level 221 MG/DL (74-106) H Calcium Level 9.2 MG/DL (8.5-10.1) Total Bilirubin 0.7 MG/DL (0.2-1.0) Aspartate Amino Transf (AST/SGOT) 15 U/L (15-37) Alanine Aminotransferase (ALT/SGPT) 13 U/L (12-78) Alkaline Phosphatase 85 U/L (46-116) Ammonia 91 umol/L (11-32) H Total Protein 5.8 G/DL (6.4-8.2) L Albumin 2.5 G/DL (3.4-5.0) L Globulin 3.3 g/dL Albumin/Globulin Ratio 0.8 (1.0-2.7) L Triglycerides Level 47 MG/DL (30-150) Cholesterol Level 54 MG/DL (< 200) LDL Cholesterol 32 mg/dL (<100) HDL Cholesterol 27 MG/DL (40-60) L Cholesterol/HDL Ratio 2.0 (3.3-4.4) L Thyroid Stimulating Hormone (TSH) 2.053 uiU/mL (0.358-3.740) C-Reactive Protein, Quantitative 3.2 mg/dL (0.00-0.90) H Height (Feet): 5 Height (Inches): 5.00 Weight (Pounds): 160 Medications Current Medications Medications (Trade) Dose Ordered Sig/Anum Route PRN Reason Start Time Stop Time Status Last Admin Dose Admin Acetaminophen (Tylenol) 650 mg Q4H PRN ORAL fever 04/02/18 13:45 05/02/18 13:44 Amlodipine Besylate (Norvasc) 5 mg DAILY ORAL 04/04/18 09:00 05/03/18 08:59 Carvedilol (Coreg) 6.25 mg EVERY 12 HOURS ORAL 04/02/18 21:00 05/02/18 20:59 04/03/18 21:03 Cefepime HCl 1 gm/ Dextrose 55 ml @ 110 mls/hr Q24H IV 04/02/18 17:00 04/09/18 16:59 04/03/18 17:49 Dextrose (Dextrose 50%) 25 ml Q30M PRN IV Hypoglycemia 04/03/18 07:15 05/03/18 07:14 Dextrose (Dextrose 50%) 50 ml Q30M PRN IV Hypoglycemia 04/03/18 07:15 05/03/18 07:14 Hydralazine HCl (Apresoline) 10 mg Q8HR ORAL 04/03/18 22:00 05/03/18 08:59 04/03/18 22:13 Insulin Aspart (NovoLOG) BEFORE MEALS AND HS SUBQ 04/03/18 11:30 05/03/18 11:29 04/03/18 21:05 Lactulose (Cephulac) 30 gm Q6HR ORAL 04/02/18 18:00 05/02/18 17:59 04/03/18 18:28 Lorazepam (Ativan 2mg/ml 1ml) 0.5 mg Q4H PRN IV For Anxiety 04/02/18 13:45 04/09/18 13:44 Mirtazapine (Remeron) 15 mg BEDTIME ORAL 04/02/18 21:00 05/02/18 20:59 04/03/18 21:02 Morphine Sulfate (Morphine Sulfate) 2 mg Q4H PRN IVP For Pain 04/02/18 13:45 04/09/18 13:44 Ondansetron HCl (Zofran) 4 mg Q6H PRN IVP Nausea & Vomiting 04/02/18 13:45 05/02/18 13:44 Pantoprazole (Protonix) 40 mg EVERY 12 HOURS ORAL 04/03/18 21:00 05/03/18 20:59 04/03/18 21:02 Polyethylene Glycol (Miralax) 17 gm HSPRN PRN ORAL Constipation 04/02/18 13:45 05/02/18 13:44 Rifaximin (Xifaxan) 550 mg EVERY 12 HOURS ORAL 04/03/18 21:00 04/10/18 20:59 04/03/18 21:01 Zolpidem Tartrate (Ambien) 5 mg HSPRN PRN ORAL Insomnia 04/02/18 13:45 04/09/18 13:44 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 Assessment/Plan seroquel prn remron 15mg qhs dc Gabe Jacob MD Apr 03, 2018 23:36
[2018-04-04] VITALS (7 sets, daily range): BP systolic 108–132; BP diastolic 52–80
[2018-04-04] MEDS: Lactulose 20gm/30ml UDC ORAL SCH ×5 (00:25→23:26)
[2018-04-04] MEDS: HydrALAZINE 10mg Tab ORAL SCH ×3 (06:21→23:25)
[2018-04-04] MEDS: NovoLOG Insulin Flexpen SUBQ SCH ×4 (06:29→21:55)
[2018-04-04 06:54] LABS: INR 1.7 (0.9-1.1)
[2018-04-04 07:09] LABS: AMMONIA 65 umol/L (11-32)
[2018-04-04 07:11] LABS: HEMATOCRIT 24.6 % (37.0-47.0); HEMOGLOBIN 8.3 G/DL (12.0-16.0); MEAN CORPUSCULAR VOLUME 94 FL (80-99); PLATELET COUNT 60 K/UL (150-450); RED BLOOD COUNT 2.61 M/UL (4.20-5.40); RED CELL DISTRIBUTION WIDTH 17.3 % (11.6-14.8); WHITE BLOOD COUNT 6.4 K/UL (4.8-10.8)
[2018-04-04 07:25] LABS: ALANINE AMINOTRANSFERASE 19 U/L (12-78); ALBUMIN 2.7 G/DL (3.4-5.0); ALBUMIN/GLOBULIN RATIO 0.8 (1.0-2.7); ALKALINE PHOSPHATASE 84 U/L (46-116); ANION GAP 15 mmol/L (5-15); ASPARTATE AMINO TRANSFERASE 18 U/L (15-37); BLOOD UREA NITROGEN 51 mg/dL (7-18); CALCIUM 9.5 MG/DL (8.5-10.1); CARBON DIOXIDE 15 MMOL/L (21-32); CHLORIDE 116 MMOL/L (98-107); CREATININE 3.5 MG/DL (0.55-1.30); FERRITIN 1177 NG/ML (8-388); POTASSIUM 3.7 MMOL/L (3.5-5.1); SODIUM 145 MMOL/L (136-145)
[2018-04-04 07:53] LABS: PHOSPHORUS 3.3 MG/DL (2.5-4.9)
[2018-04-04 09:07] LABS: % IRON SATURATION 96 % (15-50); IRON 133 ug/dL (50-175); TOTAL IRON BINDING CAPACITY 138 ug/dL (250-450)
--- NOTE | 2018-04-04 09:15 | General Progress Note ---
Assessment/Plan Problem List: (1) HTN (hypertension) ICD Codes: I10 - Essential (primary) hypertension SNOMED: 88457217 (2) Anemia ICD Codes: D64.9 - Anemia, unspecified SNOMED: 013976626 (3) Liver cirrhosis ICD Codes: K74.60 - Unspecified cirrhosis of liver SNOMED: 76221421 (4) Hepatic encephalopathy ICD Codes: K72.90 - Hepatic failure, unspecified without coma SNOMED: 88327481, 756911367, 080943960 Assessment/Plan lactulose xifaxan ppi fu labs fu cardiology Subjective ROS Limited/Unobtainable: Yes Allergies: Coded Allergies: No Known Allergies (Unverified , 10/04/15) Objective Last 24 Hour Vital Signs Date Time Temp Pulse Resp B/P (MAP) Pulse Ox O2 Delivery O2 Flow Rate FiO2 04/04/18 09:00 97.7 71 20 120/52 (74) 97 04/04/18 06:21 157/67 04/04/18 04:00 73 04/04/18 04:00 97.6 75 18 131/64 (86) 98 04/04/18 01:00 Room Air 04/04/18 00:00 97.5 78 18 132/80 (97) 98 04/04/18 00:00 78 04/03/18 22:13 136/54 04/03/18 21:03 98 115/52 04/03/18 21:00 Room Air 04/03/18 20:00 97.7 77 18 115/52 (73) 98 04/03/18 20:00 72 04/03/18 16:11 71 04/03/18 16:00 97.8 71 18 111/49 (69) 99 04/03/18 14:17 149/122 04/03/18 12:00 98.3 75 16 149/122 (131) 97 04/03/18 11:40 70 04/03/18 10:54 73 130/90 04/03/18 10:54 73 130/90 Intake and Output 04/03/18 04/04/18 18:59 06:59 Intake Total 280 ml Balance 280 ml Intake Oral 280 ml # Voids 3 # Bowel Movements 3 3 Laboratory Tests 04/04/18 04:30: Stool Occult Blood [Pending] 04/04/18 06:10: White Blood Count 6.4, Red Blood Count 2.61L, Hemoglobin 8.3L, Hematocrit 24.6L , Mean Corpuscular Volume 94, Mean Corpuscular Hemoglobin 31.7H, Mean Corpuscular Hemoglobin Concent 33.6, Red Cell Distribution Width 17.3H, Platelet Count 60L, Mean Platelet Volume 8.6, Neutrophils (%) (Auto) , Lymphocytes (%) (Auto) , Monocytes (%) (Auto) , Eosinophils (%) (Auto) , Basophils (%) (Auto) , Neutrophils % (Manual) [Pending], Lymphocytes % (Manual) [Pending], Platelet Estimate [Pending], Platelet Morphology [Pending], Reticulocyte Count [Pending], Prothrombin Time 17.3H, Prothromb Time International Ratio 1.7H, Activated Partial Thromboplast Time 32, Sodium Level 145, Potassium Level 3.7, Chloride Level 116H, Carbon Dioxide Level 15L, Anion Gap 15, Blood Urea Nitrogen 51H, Creatinine 3.5H, Estimat Glomerular Filtration Rate , Glucose Level 185H, Hemoglobin A1c 8.0H, Uric Acid 10.1H, Calcium Level 9.5, Phosphorus Level 3.3, Magnesium Level 2.0, Iron Level [Pending], Unsaturated Iron Binding [Pending], Ferritin 1177H, Total Bilirubin 1.0, Gamma Glutamyl Transpeptidase 56, Aspartate Amino Transf (AST/SGOT) 18, Alanine Aminotransferase (ALT/SGPT) 19, Alkaline Phosphatase 84, Ammonia 65H, Troponin I 0.091H, Pro-B-Type Natriuretic Peptide 51086G, Total Protein 5.9L, Albumin 2.7L, Globulin 3.2, Albumin/Globulin Ratio 0.8L, Carcinoembryonic Antigen [ Pending], Vitamin B12 Level 1488H, Folate 11.7, Thyroid Stimulating Hormone (TSH ) 1.435, Free Thyroxine 1.37 04/04/18 06:45: Urine Eosinophils [Pending], Urine Random Sodium 59 Height (Feet): 5 Height (Inches): 5.00 Weight (Pounds): 160 General Appearance: alert EENT: normal ENT inspection Neck: supple Cardiovascular: normal rate Respiratory/Chest: decreased breath sounds Abdomen: normal bowel sounds, non tender, soft Extremities: non-tender Liam Frausto MD Apr 04, 2018 09:15
[2018-04-04] MEDS: Carvedilol 6.25mg Tab ORAL SCH ×2 (09:18→21:54)
--- NOTE | 2018-04-04 12:14 | Nephrology Progress Note ---
Assessment/Plan Problem List: (1) ARF (acute renal failure) (2) Liver cirrhosis (3) UTI (urinary tract infection) (4) encephalopathy due to toxin (5) Venous stasis of both lower extremities (6) Anemia in chronic kidney disease (CKD) (7) CKD (chronic kidney disease) Assessment: diabetic nephropathy Assessment Renal failure- acute on Chronic Diabetic nephropathy Anemia of CKD Pacer Metabolic encephalopathy DM OOC Elevated Troponin Cellulitis and PVD legs UTI Plan Devlin keep BP and BS under control Anemia dhaliwal Avoid nephrotoxics St eval slow hydrate asa and nitro discussed with RN Subjective ROS Limited/Unobtainable: No Constitutional: Reports: malaise, weakness Objective Objective Last 24 Hour Vital Signs Date Time Temp Pulse Resp B/P (MAP) Pulse Ox O2 Delivery O2 Flow Rate FiO2 04/04/18 09:18 71 120/52 04/04/18 09:18 71 120/52 04/04/18 09:00 Room Air 04/04/18 09:00 97.7 71 20 120/52 (74) 97 04/04/18 08:00 73 04/04/18 06:21 157/67 04/04/18 04:00 73 04/04/18 04:00 97.6 75 18 131/64 (86) 98 04/04/18 01:00 Room Air 04/04/18 00:00 97.5 78 18 132/80 (97) 98 04/04/18 00:00 78 04/03/18 22:13 136/54 04/03/18 21:03 98 115/52 04/03/18 21:00 Room Air 04/03/18 20:00 97.7 77 18 115/52 (73) 98 04/03/18 20:00 72 04/03/18 16:11 71 04/03/18 16:00 97.8 71 18 111/49 (69) 99 04/03/18 14:17 149/122 Intake and Output 04/03/18 04/04/18 19:00 07:00 Intake Total 280 ml Balance 280 ml Intake Oral 280 ml # Voids 3 # Bowel Movements 3 3 Laboratory Tests 04/04/18 04:30: Stool Occult Blood [Pending] 04/04/18 06:10: White Blood Count 6.4, Red Blood Count 2.61L, Hemoglobin 8.3L, Hematocrit 24.6L , Mean Corpuscular Volume 94, Mean Corpuscular Hemoglobin 31.7H, Mean Corpuscular Hemoglobin Concent 33.6, Red Cell Distribution Width 17.3H, Platelet Count 60L, Mean Platelet Volume 8.6, Neutrophils (%) (Auto) , Lymphocytes (%) (Auto) , Monocytes (%) (Auto) , Eosinophils (%) (Auto) , Basophils (%) (Auto) , Differential Total Cells Counted 100, Neutrophils % ( Manual) 63, Lymphocytes % (Manual) 19L, Monocytes % (Manual) 6, Eosinophils % ( Manual) 5H, Basophils % (Manual) 1, Myelocytes % 1H, Promyelocytes % 5H, Band Neutrophils 0, Platelet Estimate DecreasedL, Platelet Morphology Normal, Anisocytosis 1+, Reticulocyte Count [Pending], Prothrombin Time 17.3H, Prothromb Time International Ratio 1.7H, Activated Partial Thromboplast Time 32 , Sodium Level 145, Potassium Level 3.7, Chloride Level 116H, Carbon Dioxide Level 15L, Anion Gap 15, Blood Urea Nitrogen 51H, Creatinine 3.5H, Estimat Glomerular Filtration Rate , Glucose Level 185H, Hemoglobin A1c 8.0H, Uric Acid 10.1H, Calcium Level 9.5, Phosphorus Level 3.3, Magnesium Level 2.0, Iron Level 133, Total Iron Binding Capacity 138L, Percent Iron Saturation 96H, Unsaturated Iron Binding 5L, Ferritin 1177H, Total Bilirubin 1.0, Gamma Glutamyl Transpeptidase 56, Aspartate Amino Transf (AST/SGOT) 18, Alanine Aminotransferase (ALT/SGPT) 19, Alkaline Phosphatase 84, Ammonia 65H, Troponin I 0.091H, Pro-B-Type Natriuretic Peptide 95693W, Total Protein 5.9L, Albumin 2.7L, Globulin 3.2, Albumin/Globulin Ratio 0.8L, Carcinoembryonic Antigen [ Pending], Vitamin B12 Level 1488H, Folate 11.7, Thyroid Stimulating Hormone (TSH ) 1.435, Free Thyroxine 1.37 04/04/18 06:45: Urine Eosinophils None seen, Urine Random Sodium 59 Height (Feet): 5 Height (Inches): 5.00 Weight (Pounds): 160 General Appearance: no apparent distress, lethargic Cardiovascular: normal rate Respiratory/Chest: decreased breath sounds Abdomen: distended Extremities: other - stasis changes Fouladian,Elie MD Apr 04, 2018 12:14
--- NOTE | 2018-04-04 12:44 | Cardiology Report ---
APPROVED REPORT EXAM: Two-dimensional and M-mode echocardiogram with Doppler and color Doppler. INDICATION Congestive Heart Failure M-Mode DIMENSIONS IVSd1.3 (0.7-1.1cm)Left Atrium (MM)3.9 (1.6-4.0cm) LVDd4.4 (3.5-5.6cm)Aortic Root3.4 (2.0-3.7cm) PWd1.2 (0.7-1.1cm)Aortic Cusp Exc.2.0 (1.5-2.0cm) LVDs3.1 (2.5-4.0cm) PWs1.5 cm Technically difficult and limited study due to patient was aggitated. Study quality precludes accurate assessment of regional wall motion. Normal left ventricular chamber size. Asynchronous septal motion due to pacing , inferior hypokinesis Left ventricular ejection fraction estimated to be 40 %. Mild left ventricular hypertrophy. No evidence of pericardial effusion. All other cardiac chamber sizes are within normal limits. Mild focal aortic valve sclerosis with adequate cusp excursion. Mildly thickened mitral valve leaflets with normal excursion. Mild mitral annulus and aortic root calcification. Pulmonic valve not visualized. Normal tricuspid valve structure. IVC is normal in size with physiological collapse. A color flow and spectral Doppler study was performed and revealed: No aortic insufficiency. No mitral regurgitation. Mitral diastolic velocities suggest mild left ventricular diastolic dysfunction (Grade I). No tricuspid regurgitation.
[2018-04-04] MEDS: Aspirin Baby 81mg ORAL SCH (13:20)
[2018-04-04] MEDS: Nitroglycerin Patch 0.4mg TDERMAL SCH (13:21)
--- NOTE | 2018-04-04 14:07 | Diagnostic Imaging Report ---
EXAM: US Retroperitoneal Limited, Renal CLINICAL HISTORY: RENAL-A TECHNIQUE: Real-time ultrasound of the retroperitoneum (limited) with image documentation. COMPARISON: No relevant prior studies available. FINDINGS: Aorta: The abdominal aorta and IVC were obscured by bowel gas and could not be evaluated. Right kidney: Right kidney measures 10.4 x 6.8 x 5.8 cm. Normal cortical thickness. No visible parenchymal lesions. No visible stones. No hydronephrosis. Left kidney: 1.7 cm simple-appearing cortical cyst in the left kidney. Left kidney measures 11.0 x 5.4 x 4.5 cm. Normal cortical thickness. No visible stones. No hydronephrosis. Bladder: Prevoid urinary bladder volume of 73 cc. Free fluid: No free fluid. IMPRESSION: 1. No acute findings. No hydronephrosis. 2. 1.7 cm simple-appearing cortical cyst in the left kidney.
--- NOTE | 2018-04-04 16:57 | Internal Med Progress Note ---
Subjective Date of Service: Apr 04, 2018 Physician Name Arce,Amandeep Attending Physician Carrillo Clay MD Current Medications Medications (Trade) Dose Ordered Sig/Anum Route PRN Reason Start Time Stop Time Status Last Admin Dose Admin Acetaminophen (Tylenol) 650 mg Q4H PRN ORAL fever 04/02/18 13:45 05/02/18 13:44 Amlodipine Besylate (Norvasc) 5 mg DAILY ORAL 04/04/18 09:00 05/03/18 08:59 04/04/18 09:18 Aspirin (ASA) 81 mg DAILY ORAL 04/04/18 12:30 05/04/18 12:29 04/04/18 13:20 Carvedilol (Coreg) 6.25 mg EVERY 12 HOURS ORAL 04/02/18 21:00 05/02/18 20:59 04/04/18 09:18 Cefepime HCl 0.5 gm/Dextrose 55 ml @ 110 mls/hr Q24H IV 04/04/18 17:00 04/11/18 16:59 Dextrose (Dextrose 50%) 25 ml Q30M PRN IV Hypoglycemia 04/03/18 07:15 05/03/18 07:14 Dextrose (Dextrose 50%) 50 ml Q30M PRN IV Hypoglycemia 04/03/18 07:15 05/03/18 07:14 Hydralazine HCl (Apresoline) 10 mg Q8HR ORAL 04/03/18 22:00 05/03/18 08:59 04/04/18 13:21 Insulin Aspart (NovoLOG) BEFORE MEALS AND HS SUBQ 04/03/18 11:30 05/03/18 11:29 04/04/18 11:58 Lactulose (Cephulac) 30 gm Q6HR ORAL 04/02/18 18:00 05/02/18 17:59 04/04/18 13:20 Lorazepam (Ativan 2mg/ml 1ml) 0.5 mg Q4H PRN IV For Anxiety 04/02/18 13:45 04/09/18 13:44 Mirtazapine (Remeron) 15 mg BEDTIME ORAL 04/02/18 21:00 05/02/18 20:59 04/03/18 21:02 Morphine Sulfate (Morphine Sulfate) 2 mg Q4H PRN IVP For Pain 04/02/18 13:45 04/09/18 13:44 Nitroglycerin (Ntg) 1 patch Q24H TDERMAL 04/04/18 12:30 05/04/18 12:29 04/04/18 13:21 Ondansetron HCl (Zofran) 4 mg Q6H PRN IVP Nausea & Vomiting 04/02/18 13:45 05/02/18 13:44 Pantoprazole (Protonix) 40 mg EVERY 12 HOURS ORAL 04/03/18 21:00 05/03/18 20:59 04/04/18 09:18 Polyethylene Glycol (Miralax) 17 gm HSPRN PRN ORAL Constipation 04/02/18 13:45 05/02/18 13:44 Rifaximin (Xifaxan) 550 mg EVERY 12 HOURS ORAL 04/03/18 21:00 04/10/18 20:59 04/04/18 09:18 Sodium Chloride 1,000 ml @ 75 mls/hr [id number] IV 04/04/18 12:30 05/04/18 12:29 04/04/18 12:52 Allergies: Coded Allergies: No Known Allergies (Unverified , 10/04/15) ROS Limited/Unobtainable: Yes Subjective 72 YO F admitted with cirrhosis and altered mental status. Now hepatic encephalopathy. Cover for Int Med-Dr Clay. Objective Last Vital Signs Date Time Temp Pulse Resp B/P (MAP) Pulse Ox O2 Delivery O2 Flow Rate FiO2 04/04/18 13:21 116/61 04/04/18 12:00 98.2 128 19 98 04/04/18 09:00 Room Air Laboratory Tests Test 04/04/18 04:30 04/04/18 06:10 04/04/18 06:45 Stool Occult Blood Pending White Blood Count 6.4 K/UL (4.8-10.8) Red Blood Count 2.61 M/UL (4.20-5.40) L Hemoglobin 8.3 G/DL (12.0-16.0) L Hematocrit 24.6 % (37.0-47.0) L Mean Corpuscular Volume 94 FL (80-99) Mean Corpuscular Hemoglobin 31.7 PG (27.0-31.0) H Mean Corpuscular Hemoglobin Concent 33.6 G/DL (32.0-36.0) Red Cell Distribution Width 17.3 % (11.6-14.8) H Platelet Count 60 K/UL (150-450) L Mean Platelet Volume 8.6 FL (6.5-10.1) Neutrophils (%) (Auto) % (45.0-75.0) Lymphocytes (%) (Auto) % (20.0-45.0) Monocytes (%) (Auto) % (1.0-10.0) Eosinophils (%) (Auto) % (0.0-3.0) Basophils (%) (Auto) % (0.0-2.0) Differential Total Cells Counted 100 Neutrophils % (Manual) 63 % (45-75) Lymphocytes % (Manual) 19 % (20-45) L Monocytes % (Manual) 6 % (1-10) Eosinophils % (Manual) 5 % (0-3) H Basophils % (Manual) 1 % (0-2) Myelocytes % 1 % (0-0) H Promyelocytes % 5 % (0-0) H Band Neutrophils 0 % (0-8) Platelet Estimate Decreased L Platelet Morphology Normal Anisocytosis 1+ Reticulocyte Count 1.6 % (0.0-2.0) Prothrombin Time 17.3 SEC (9.30-11.50) H Prothromb Time International Ratio 1.7 (0.9-1.1) H Activated Partial Thromboplast Time 32 SEC (23-33) Sodium Level 145 MMOL/L (136-145) Potassium Level 3.7 MMOL/L (3.5-5.1) Chloride Level 116 MMOL/L (98-107) H Carbon Dioxide Level 15 MMOL/L (21-32) L Anion Gap 15 mmol/L (5-15) Blood Urea Nitrogen 51 mg/dL (7-18) H Creatinine 3.5 MG/DL (0.55-1.30) H Estimat Glomerular Filtration Rate mL/min (>60) Glucose Level 185 MG/DL (74-106) H Hemoglobin A1c 8.0 % (4.3-6.0) H Uric Acid 10.1 MG/DL (2.6-7.2) H Calcium Level 9.5 MG/DL (8.5-10.1) Phosphorus Level 3.3 MG/DL (2.5-4.9) Magnesium Level 2.0 MG/DL (1.8-2.4) Iron Level 133 ug/dL (50-175) Total Iron Binding Capacity 138 ug/dL (250-450) L Percent Iron Saturation 96 % (15-50) H Unsaturated Iron Binding 5 ug/dL (112-346) L Ferritin 1177 NG/ML (8-388) H Total Bilirubin 1.0 MG/DL (0.2-1.0) Gamma Glutamyl Transpeptidase 56 U/L (5-85) Aspartate Amino Transf (AST/SGOT) 18 U/L (15-37) Alanine Aminotransferase (ALT/SGPT) 19 U/L (12-78) Alkaline Phosphatase 84 U/L (46-116) Ammonia 65 umol/L (11-32) H Troponin I 0.091 ng/mL (0.000-0.056) Pro-B-Type Natriuretic Peptide 04625 pg/mL (0-125) H Total Protein 5.9 G/DL (6.4-8.2) L Albumin 2.7 G/DL (3.4-5.0) L Globulin 3.2 g/dL Albumin/Globulin Ratio 0.8 (1.0-2.7) L Carcinoembryonic Antigen Pending Vitamin B12 Level 1488 PG/ML (193-986) H Folate 11.7 NG/ML (8.6-58.9) Thyroid Stimulating Hormone (TSH) 1.435 uiU/mL (0.358-3.740) Free Thyroxine 1.37 NG/DL (0.76-1.46) Urine Eosinophils None seen (NONE SEEN) Urine Random Sodium 59 mmol/L (20-110) Microbiology Date/Time Source Procedure Growth Status 04/02/18 11:50 Blood Blood Culture - Preliminary NO GROWTH AFTER 24 HOURS Resulted 04/02/18 10:50 Blood Blood Culture - Preliminary NO GROWTH AFTER 24 HOURS Resulted 04/02/18 11:50 Nasal Nares Influenza Types A,B Antigen (ELIZA) - Final Complete 04/02/18 11:12 Urine,Clean Catch Urine Culture - Preliminary Yeast Species Gram Negative Yeyo Resulted Intake and Output 04/03/18 04/04/18 19:00 07:00 Intake Total 280 ml Balance 280 ml Intake Oral 280 ml # Voids 3 # Bowel Movements 3 3 Objective PHYSICAL EXAMINATION: GENERAL: The patient is a well-developed and well-nourished, obese, female, in no apparent distress. HEENT: Eyes, pupils equal and responsive to light and accommodation. Extraocular movements are intact. NECK: Supple without lymphadenopathy. CHEST: Lungs are clear to auscultation bilaterally without wheezes or rales. CARDIOVASCULAR: Regular rhythm and rate. S1 and S2 normal without murmurs, rubs, or gallops. ABDOMEN: Soft, nontender, and nondistended. Positive bowel sounds. No evidence of hepatosplenomegaly. Currently, no rebound or guarding noted. EXTREMITIES: Negative for clubbing, cyanosis, or edema. RECTAL/GENITAL: Refused. NEUROLOGIC: Cranial nerves II through XII are grossly intact without focal deficits. Motor strength is 5/5 bilaterally. Deep tendon reflexes are 2+ plantar. Assessment/Plan Problem List: (1) Atrial fibrillation (2) Hepatic encephalopathy Assessment & Plan: Continue lactulose per GI (3) Liver cirrhosis (4) HTN (hypertension) Assessment & Plan: Continue norvasc (5) CHF (congestive heart failure) (6) CKD (chronic kidney disease) Assessment & Plan: See nephrology note. Status: not improved Amandeep Arce MD Apr 04, 2018 16:57
[2018-04-04] MEDS: Cefepime HCl 0.5 GM in D5W 55 ML IV SCH (17:08)
--- NOTE | 2018-04-04 22:07 | General Progress Note ---
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 Status: unchanged Assessment/Plan seroquel prn remron 15mg qhs dc ambien Subjective Neurologic/Psychiatric: Reports: anxiety, depressed, emotional problems Allergies: Coded Allergies: No Known Allergies (Unverified , 10/04/15) Objective Last 24 Hour Vital Signs Date Time Temp Pulse Resp B/P (MAP) Pulse Ox O2 Delivery O2 Flow Rate FiO2 04/04/18 21:54 71 121/61 04/04/18 20:00 97.4 71 22 121/61 (81) 97 04/04/18 19:36 70 04/04/18 16:00 97.9 71 21 108/59 (75) 99 04/04/18 16:00 72 04/04/18 13:21 116/61 04/04/18 13:21 116/61 04/04/18 12:00 70 04/04/18 12:00 98.2 128 19 116/61 (79) 98 04/04/18 09:18 71 120/52 04/04/18 09:18 71 120/52 04/04/18 09:00 Room Air 04/04/18 09:00 97.7 71 20 120/52 (74) 97 04/04/18 08:00 73 04/04/18 06:21 157/67 04/04/18 04:00 73 04/04/18 04:00 97.6 75 18 131/64 (86) 98 04/04/18 01:00 Room Air 04/04/18 00:00 97.5 78 18 132/80 (97) 98 04/04/18 00:00 78 04/03/18 22:13 136/54 Intake and Output 04/03/18 04/04/18 19:00 07:00 Intake Total 280 ml Balance 280 ml Intake Oral 280 ml # Voids 3 # Bowel Movements 3 3 Laboratory Tests 04/04/18 04:30: Stool Occult Blood [Pending] 04/04/18 06:10: White Blood Count 6.4, Red Blood Count 2.61L, Hemoglobin 8.3L, Hematocrit 24.6L , Mean Corpuscular Volume 94, Mean Corpuscular Hemoglobin 31.7H, Mean Corpuscular Hemoglobin Concent 33.6, Red Cell Distribution Width 17.3H, Platelet Count 60L, Mean Platelet Volume 8.6, Neutrophils (%) (Auto) , Lymphocytes (%) (Auto) , Monocytes (%) (Auto) , Eosinophils (%) (Auto) , Basophils (%) (Auto) , Differential Total Cells Counted 100, Neutrophils % ( Manual) 63, Lymphocytes % (Manual) 19L, Monocytes % (Manual) 6, Eosinophils % ( Manual) 5H, Basophils % (Manual) 1, Myelocytes % 1H, Promyelocytes % 5H, Band Neutrophils 0, Platelet Estimate DecreasedL, Platelet Morphology Normal, Anisocytosis 1+, Reticulocyte Count 1.6, Prothrombin Time 17.3H, Prothromb Time International Ratio 1.7H, Activated Partial Thromboplast Time 32, Sodium Level 145, Potassium Level 3.7, Chloride Level 116H, Carbon Dioxide Level 15L, Anion Gap 15, Blood Urea Nitrogen 51H, Creatinine 3.5H, Estimat Glomerular Filtration Rate , Glucose Level 185H, Hemoglobin A1c 8.0H, Uric Acid 10.1H, Calcium Level 9.5, Phosphorus Level 3.3, Magnesium Level 2.0, Iron Level 133, Total Iron Binding Capacity 138L, Percent Iron Saturation 96H, Unsaturated Iron Binding 5L , Ferritin 1177H, Total Bilirubin 1.0, Gamma Glutamyl Transpeptidase 56, Aspartate Amino Transf (AST/SGOT) 18, Alanine Aminotransferase (ALT/SGPT) 19, Alkaline Phosphatase 84, Ammonia 65H, Troponin I 0.091H, Pro-B-Type Natriuretic Peptide 36209G, Total Protein 5.9L, Albumin 2.7L, Globulin 3.2, Albumin/ Globulin Ratio 0.8L, Carcinoembryonic Antigen [Pending], Vitamin B12 Level 1488H , Folate 11.7, Thyroid Stimulating Hormone (TSH) 1.435, Free Thyroxine 1.37 04/04/18 06:45: Urine Eosinophils None seen, Urine Random Sodium 59 Height (Feet): 5 Height (Inches): 5.00 Weight (Pounds): 160 General Appearance: confused, agitated Gabe Pennington MD Apr 04, 2018 22:07
[2018-04-05 04:00] VITALS: BP 127/86
[2018-04-05 05:53] LABS: HEMATOCRIT 23.3 % (37.0-47.0); HEMOGLOBIN 7.6 G/DL (12.0-16.0); MEAN CORPUSCULAR VOLUME 97 FL (80-99); PLATELET COUNT 56 K/UL (150-450); RED BLOOD COUNT 2.41 M/UL (4.20-5.40); RED CELL DISTRIBUTION WIDTH 17.4 % (11.6-14.8); WHITE BLOOD COUNT 6.1 K/UL (4.8-10.8)
[2018-04-05 05:57] LABS: INR 1.5 (0.9-1.1)
[2018-04-05 06:18] LABS: AMMONIA 68 umol/L (11-32)
[2018-04-05] MEDS: Lactulose 20gm/30ml UDC ORAL SCH ×4 (06:20→23:59)
[2018-04-05] MEDS: HydrALAZINE 10mg Tab ORAL SCH ×3 (06:20→23:59)
[2018-04-05] MEDS: NovoLOG Insulin Flexpen SUBQ SCH ×4 (06:21→21:00)
[2018-04-05 07:38] LABS: ALANINE AMINOTRANSFERASE 19 U/L (12-78); ALBUMIN 2.5 G/DL (3.4-5.0); ALBUMIN/GLOBULIN RATIO 0.8 (1.0-2.7); ALKALINE PHOSPHATASE 80 U/L (46-116); ANION GAP 16 mmol/L (5-15); ASPARTATE AMINO TRANSFERASE 18 U/L (15-37); BILIRUBIN,TOTAL 0.7 MG/DL (0.2-1.0); BLOOD UREA NITROGEN 52 mg/dL (7-18); CALCIUM 9.1 MG/DL (8.5-10.1); CARBON DIOXIDE 13 MMOL/L (21-32); CHLORIDE 114 MMOL/L (98-107); CREATININE 3.5 MG/DL (0.55-1.30); POTASSIUM 3.6 MMOL/L (3.5-5.1); SODIUM 143 MMOL/L (136-145)
[2018-04-05 08:00] VITALS: BP 104/62
--- NOTE | 2018-04-05 08:51 | Pulmonology Progress Note ---
Assessment/Plan Assessment/Plan Pulmonary Consultation Note Patient seen 04/04/2018 HPI This patient is brought in by her daughter. She has many medical problems to include a cirrhosis and kidney disease. She is brought in by her daughter for altered mental status. Reports that she has recently been admitted to [facility]. She was also in a long term facility. However, she is now at home and she is the primary caregiver. She feels that she can care for her. She has been home for about 3 weeks. She reports that over the past couple days she has been more altered. The patient herself has no specific complaints. There is no report of fever or chills. There is no nausea or vomiting. There are no other complaints. Allergies: No Known Allergies Past Medical History: Cirrhosis, DM, HTN, CHF, CKD, Anemia, HL Past Surgical History: pacemaker Social History: Denies: smoking, alcohol use, drug use All Other Systems: negative except mentioned in HPI Physical Exam Vital Signs Noted General Appearance: no apparent distress, GCS 15, non-toxic, lethargic - but arousable to simple questions., obese Head: normocephalic, atraumatic Eyes: bilateral eye normal inspection, bilateral eye PERRL ENT: hearing grossly normal, normal pharynx, no angioedema, normal voice Neck: full range of motion, supple/symm/no masses Respiratory: chest non-tender, lungs clear, normal breath sounds, no respiratory distress, no retraction, no accessory muscle use, speaking full sentences Cardiovascular #1: regular rate, rhythm, no edema Gastrointestinal: normal bowel sounds, non tender, soft, non-distended, no guarding, no rebound Rectal: deferred Musculoskeletal: back normal, gait/station normal, normal range of motion, non- tender, calf tenderness Neurologic: responsive, sensory intact, speech normal, grossly normal Psychiatric: mood/affect normal, no suicidal/homicidal ideation Skin: normal color, no rash, warm/dry, well hydrated Impression: Primary Impression: Hepatic encephalopathy Cirrhosis Diabetes CHF CKD Anemia Hyperglycemia Elevated troponin UTI (urinary tract infection) Plan Antibiotics Monitor Labs Lactulose IVF PRN O2 PRN Laboratory Tests Test 04/02/18 10:50 04/02/18 11:12 04/02/18 11:50 White Blood Count 8.5 K/UL (4.8-10.8) Red Blood Count 2.74 M/UL (4.20-5.40) L Hemoglobin 8.9 G/DL (12.0-16.0) L Hematocrit 26.5 % (37.0-47.0) L Mean Corpuscular Volume 97 FL (80-99) Mean Corpuscular Hemoglobin 32.4 PG (27.0-31.0) H Mean Corpuscular Hemoglobin Concent 33.5 G/DL (32.0-36.0) Red Cell Distribution Width 16.8 % (11.6-14.8) H Platelet Count 63 K/UL (150-450) L Mean Platelet Volume 9.5 FL (6.5-10.1) Neutrophils (%) (Auto) % (45.0-75.0) Lymphocytes (%) (Auto) % (20.0-45.0) Monocytes (%) (Auto) % (1.0-10.0) Eosinophils (%) (Auto) % (0.0-3.0) Basophils (%) (Auto) % (0.0-2.0) Differential Total Cells Counted 100 Neutrophils % (Manual) 72 % (45-75) Lymphocytes % (Manual) 11 % (20-45) L Monocytes % (Manual) 5 % (1-10) Eosinophils % (Manual) 12 % (0-3) H Basophils % (Manual) 0 % (0-2) Band Neutrophils 0 % (0-8) Platelet Estimate Decreased L Platelet Morphology Normal Hypochromasia 1+ Anisocytosis 1+ Sodium Level 135 MMOL/L (136-145) L Potassium Level 4.5 MMOL/L (3.5-5.1) Chloride Level 108 MMOL/L (98-107) H Carbon Dioxide Level 17 MMOL/L (21-32) L Anion Gap 10 mmol/L (5-15) Blood Urea Nitrogen 51 mg/dL (7-18) H Creatinine 3.8 MG/DL (0.55-1.30) H Estimate Glomerular Filtration Rate mL/min (>60) Glucose Level 260 MG/DL (74-106) H Lactic Acid Level 2.30 mmol/L (0.4-2.0) H 2.10 mmol/L (0.66-2.22) Calcium Level 9.6 MG/DL (8.5-10.1) Total Bilirubin 0.7 MG/DL (0.2-1.0) Aspartate Amino Transferase (AST) 6 U/L (15-37) L Alanine Aminotransferase (ALT) 21 U/L (12-78) Alkaline Phosphatase 91 U/L (46-116) Ammonia 149 umol/L (11-32) H Total Creatine Kinase 61 U/L (26-308) Creatine Kinase MB 1.0 NG/ML (0.0-3.6) Creatine Kinase MB Relative Index 1.6 Troponin I 0.079 ng/mL (0.000-0.056) Total Protein 6.3 G/DL (6.4-8.2) L Albumin 2.6 G/DL (3.4-5.0) L Globulin 3.7 g/dL Albumin/Globulin Ratio 0.7 (1.0-2.7) L Urine Color Pale yellow Urine Appearance Clear Urine pH 5 (4.5-8.0) Urine Specific [place] 1.010 (1.005-1.035) Urine Protein Negative (NEGATIVE) Urine Glucose (UA) Negative (NEGATIVE) Urine Ketones Negative (NEGATIVE) Urine Blood 2+ (NEGATIVE) H Urine Nitrite Negative (NEGATIVE) Urine Bilirubin Negative (NEGATIVE) Urine Urobilinogen Normal MG/DL (0.0-1.0) Urine Leukocyte Esterase 3+ (NEGATIVE) H Urine RBC 2-4 /HPF (0 - 2) H Urine WBC 10-15 /HPF (0 - 2) H Urine Squamous Epithelial Cells Few /LPF (NONE/OCC) Urine Bacteria Few /HPF (NONE) Microbiology Date/Time Source Procedure Growth Status 04/02/18 11:50 Nasal Nares Influenza Types A,B Antigen (ELIZA) - Final Complete EKG Diagnostic Results Rate: normal Rhythm: other - Paced ST Segments: no acute changes Chest X-Ray Diagnostic Results : Chest X-Ray Ordered: Yes # of Views/Limited/Complete: 1 View Indication: Other EP Interpretation: Yes Interpretation: no consolidation, no effusion, no pneumothorax, no acute cardiopulmonary disease Impression: No acute disease Electronically Signed by: Catrina Desir DO CT head Impression No acute findings. Specifically no intracranial bleed, mass effect or edema. Subjective ROS Limited/Unobtainable: No Allergies: Coded Allergies: No Known Allergies (Unverified , 10/04/15) Objective Last 24 Hour Vital Signs Date Time Temp Pulse Resp B/P (MAP) Pulse Ox O2 Delivery O2 Flow Rate FiO2 04/05/18 08:00 97.3 75 21 104/62 (76) 99 04/05/18 06:20 127/86 04/05/18 04:00 97.5 72 22 127/86 (100) 99 04/05/18 03:57 71 04/04/18 23:40 72 04/04/18 23:25 115/59 04/04/18 23:23 98.0 77 20 115/59 (77) 100 04/04/18 21:54 71 121/61 04/04/18 21:00 Room Air 04/04/18 20:00 97.4 71 22 121/61 (81) 97 04/04/18 19:36 70 04/04/18 16:00 97.9 71 21 108/59 (75) 99 04/04/18 16:00 72 04/04/18 13:21 116/61 04/04/18 13:21 116/61 04/04/18 12:00 70 04/04/18 12:00 98.2 128 19 116/61 (79) 98 04/04/18 09:18 71 120/52 04/04/18 09:18 71 120/52 04/04/18 09:00 Room Air 04/04/18 09:00 97.7 71 20 120/52 (74) 97 Intake and Output 04/04/18 04/05/18 18:59 06:59 Intake Total 560 ml Output Total 400 ml Balance 560 ml -400 ml Intake Oral 560 ml Output Urine Total 400 ml # Bowel Movements 3 1 Microbiology Date/Time Source Procedure Growth Status 04/02/18 11:50 Blood Blood Culture - Preliminary NO GROWTH AFTER 48 HOURS Resulted 04/02/18 10:50 Blood Blood Culture - Preliminary NO GROWTH AFTER 48 HOURS Resulted 04/02/18 11:50 Nasal Nares Influenza Types A,B Antigen (ELIZA) - Final Complete 04/02/18 11:12 Urine,Clean Catch Urine Culture - Preliminary Yeast Species Gram Negative Yeyo Resulted Laboratory Tests 04/05/18 05:10: White Blood Count 6.1, Red Blood Count 2.41L, Hemoglobin 7.6L, Hematocrit 23.3L , Mean Corpuscular Volume 97, Mean Corpuscular Hemoglobin 31.7H, Mean Corpuscular Hemoglobin Concent 32.8, Red Cell Distribution Width 17.4H, Platelet Count 56L, Mean Platelet Volume 7.8, Neutrophils (%) (Auto) , Lymphocytes (%) (Auto) , Monocytes (%) (Auto) , Eosinophils (%) (Auto) , Basophils (%) (Auto) , Neutrophils % (Manual) [Pending], Lymphocytes % (Manual) [Pending], Platelet Estimate [Pending], Platelet Morphology [Pending], Prothrombin Time 15.5H, Prothromb Time International Ratio 1.5H, Sodium Level 143, Potassium Level 3.6, Chloride Level 114H, Carbon Dioxide Level 13L, Anion Gap 16H, Blood Urea Nitrogen 52H, Creatinine 3.5H, Estimat Glomerular Filtration Rate , Glucose Level 134H, Uric Acid 9.6H, Calcium Level 9.1, Phosphorus Level 3.0, Magnesium Level 1.9, Total Bilirubin 0.7, Aspartate Amino Transf (AST/SGOT) 18, Alanine Aminotransferase (ALT/SGPT) 19, Alkaline Phosphatase 80, Ammonia 68H, Troponin I 0.074H, C-Reactive Protein, Quantitative 2.3H, Pro-B-Type Natriuretic Peptide 11815T, Total Protein 5.6L, Albumin 2.5L, Globulin 3.1, Albumin/Globulin Ratio 0.8L Current Medications Medications (Trade) Dose Ordered Sig/Anum Route PRN Reason Start Time Stop Time Status Last Admin Dose Admin Acetaminophen (Tylenol) 650 mg Q4H PRN ORAL fever 04/02/18 13:45 05/02/18 13:44 Amlodipine Besylate (Norvasc) 5 mg DAILY ORAL 04/04/18 09:00 05/03/18 08:59 04/04/18 09:18 Aspirin (ASA) 81 mg DAILY ORAL 04/04/18 12:30 05/04/18 12:29 04/04/18 13:20 Carvedilol (Coreg) 6.25 mg EVERY 12 HOURS ORAL 04/02/18 21:00 05/02/18 20:59 04/04/18 21:54 Cefepime HCl 0.5 gm/Dextrose 55 ml @ 110 mls/hr Q24H IV 04/04/18 17:00 04/11/18 16:59 04/04/18 17:08 Dextrose (Dextrose 50%) 25 ml Q30M PRN IV Hypoglycemia 04/03/18 07:15 1/20/19 07:14 Dextrose (Dextrose 50%) 50 ml Q30M PRN IV Hypoglycemia 04/03/18 07:15 05/03/18 07:14 Hydralazine HCl (Apresoline) 10 mg Q8HR ORAL 04/03/18 22:00 05/03/18 08:59 04/05/18 06:20 Insulin Aspart (NovoLOG) BEFORE MEALS AND HS SUBQ 04/03/18 11:30 05/03/18 11:29 04/05/18 06:21 Lactulose (Cephulac) 30 gm Q6HR ORAL 04/02/18 18:00 05/02/18 17:59 04/05/18 06:20 Lorazepam (Ativan 2mg/ml 1ml) 0.5 mg Q4H PRN IV For Anxiety 04/02/18 13:45 04/09/18 13:44 Mirtazapine (Remeron) 15 mg BEDTIME ORAL 04/02/18 21:00 05/02/18 20:59 04/04/18 21:54 Morphine Sulfate (Morphine Sulfate) 2 mg Q4H PRN IVP For Pain 04/02/18 13:45 04/09/18 13:44 Nitroglycerin (Ntg) 1 patch Q24H TDERMAL 04/04/18 12:30 05/04/18 12:29 04/04/18 13:21 Ondansetron HCl (Zofran) 4 mg Q6H PRN IVP Nausea & Vomiting 04/02/18 13:45 05/02/18 13:44 Pantoprazole (Protonix) 40 mg EVERY 12 HOURS ORAL 04/03/18 21:00 05/03/18 20:59 04/04/18 21:54 Polyethylene Glycol (Miralax) 17 gm HSPRN PRN ORAL Constipation 04/02/18 13:45 05/02/18 13:44 Rifaximin (Xifaxan) 550 mg EVERY 12 HOURS ORAL 04/03/18 21:00 04/10/18 20:59 04/04/18 21:54 Sodium Chloride 1,000 ml @ 75 mls/hr [id number] IV 04/04/18 12:30 05/04/18 12:29 04/05/18 02:08 Dhaval Schulz MD Apr 05, 2018 08:51
--- NOTE | 2018-04-05 09:05 | General Progress Note ---
Assessment/Plan Problem List: (1) HTN (hypertension) ICD Codes: I10 - Essential (primary) hypertension SNOMED: 68316301 (2) Anemia ICD Codes: D64.9 - Anemia, unspecified SNOMED: 693784165 (3) Liver cirrhosis ICD Codes: K74.60 - Unspecified cirrhosis of liver SNOMED: 17276579 (4) Hepatic encephalopathy ICD Codes: K72.90 - Hepatic failure, unspecified without coma SNOMED: 43235561, 253967553, 293203736 Assessment/Plan lactulose xifaxan ppi fu labs fu cardiology ? hepatorenal syndrome. D/W nephro, will start octreoride and midodrine Subjective ROS Limited/Unobtainable: Yes Allergies: Coded Allergies: No Known Allergies (Unverified , 10/04/15) Objective Last 24 Hour Vital Signs Date Time Temp Pulse Resp B/P (MAP) Pulse Ox O2 Delivery O2 Flow Rate FiO2 04/05/18 08:00 97.3 75 21 104/62 (76) 99 04/05/18 06:20 127/86 04/05/18 04:00 97.5 72 22 127/86 (100) 99 04/05/18 03:57 71 04/04/18 23:40 72 04/04/18 23:25 115/59 04/04/18 23:23 98.0 77 20 115/59 (77) 100 04/04/18 21:54 71 121/61 04/04/18 21:00 Room Air 04/04/18 20:00 97.4 71 22 121/61 (81) 97 04/04/18 19:36 70 04/04/18 16:00 97.9 71 21 108/59 (75) 99 04/04/18 16:00 72 04/04/18 13:21 116/61 04/04/18 13:21 116/61 04/04/18 12:00 70 04/04/18 12:00 98.2 128 19 116/61 (79) 98 04/04/18 09:18 71 120/52 04/04/18 09:18 71 120/52 Intake and Output 04/04/18 04/05/18 18:59 06:59 Intake Total 560 ml Output Total 400 ml Balance 560 ml -400 ml Intake Oral 560 ml Output Urine Total 400 ml # Bowel Movements 3 1 Laboratory Tests 04/05/18 05:10: White Blood Count 6.1, Red Blood Count 2.41L, Hemoglobin 7.6L, Hematocrit 23.3L , Mean Corpuscular Volume 97, Mean Corpuscular Hemoglobin 31.7H, Mean Corpuscular Hemoglobin Concent 32.8, Red Cell Distribution Width 17.4H, Platelet Count 56L, Mean Platelet Volume 7.8, Neutrophils (%) (Auto) , Lymphocytes (%) (Auto) , Monocytes (%) (Auto) , Eosinophils (%) (Auto) , Basophils (%) (Auto) , Neutrophils % (Manual) [Pending], Lymphocytes % (Manual) [Pending], Platelet Estimate [Pending], Platelet Morphology [Pending], Prothrombin Time 15.5H, Prothromb Time International Ratio 1.5H, Sodium Level 143, Potassium Level 3.6, Chloride Level 114H, Carbon Dioxide Level 13L, Anion Gap 16H, Blood Urea Nitrogen 52H, Creatinine 3.5H, Estimat Glomerular Filtration Rate , Glucose Level 134H, Uric Acid 9.6H, Calcium Level 9.1, Phosphorus Level 3.0, Magnesium Level 1.9, Total Bilirubin 0.7, Aspartate Amino Transf (AST/SGOT) 18, Alanine Aminotransferase (ALT/SGPT) 19, Alkaline Phosphatase 80, Ammonia 68H, Troponin I 0.074H, C-Reactive Protein, Quantitative 2.3H, Pro-B-Type Natriuretic Peptide 44967Z, Total Protein 5.6L, Albumin 2.5L, Globulin 3.1, Albumin/Globulin Ratio 0.8L Height (Feet): 5 Height (Inches): 5.00 Weight (Pounds): 160 General Appearance: no apparent distress EENT: normal ENT inspection Neck: supple Cardiovascular: normal rate Respiratory/Chest: decreased breath sounds Abdomen: normal bowel sounds, non tender, soft Extremities: non-tender Liam Frausto MD Apr 05, 2018 09:05
[2018-04-05] MEDS: Aspirin Baby 81mg ORAL SCH (09:13)
[2018-04-05] MEDS: Carvedilol 6.25mg Tab ORAL SCH ×2 (09:13→21:00)
[2018-04-05] MEDS: Octreotide Acetate 500 MCG in Sodium Chloride 500ML 499 ML IV SCH ×2 (11:17→20:30)
[2018-04-05 12:00] VITALS: BP 137/64
[2018-04-05] MEDS: Nitroglycerin Patch 0.4mg TDERMAL SCH (12:00)
--- NOTE | 2018-04-05 13:27 | Consultation ---
History of Present Illness General Chief Complaint: Altered Level of Consciousness Referring physician: ANNALISA HALL Reason for Consultation: sacral ulcer Present Illness HPI 72 year old female with multiple medical comorbidities currently being cared for by medical team. On admission noted to have multiple wounds requiring care and management. Surgery called to assist with wound care. Patient seen, chart reviewed, patient examined. family at bedside and instructed to care plans. Allergies: Coded Allergies: No Known Allergies (Unverified , 10/04/15) Medication History Scheduled Albuterol Sulfate (Ventolin Hfa), 2 PUFFS INH EVERY 6 HOURS, (Reported) Amlodipine Besylate (Norvasc), 5 MG ORAL DAILY, (Reported) Aspirin (Ecotrin), 81 MG PO DAILY, (Reported) Atorvastatin (Lipitor), 80 MG ORAL BEDTIME, (Reported) Bumetanide* (Bumetanide*), 2 MG ORAL DAILY, (Reported) Carvedilol* (Carvedilol*), 6.25 MG ORAL EVERY 12 HOURS, (Reported) Cholecalciferol (Vitamin D3)* (Vitamin D*), 2,000 UNITS ORAL DAILY, (Reported) Docusate Sodium (Doc-Q-Lace), 100 MG ORAL DAILY, (Reported) Docusate Sodium* (Docusate Sodium*), 100 MG ORAL TWICE A DAY, (Reported) Famotidine (Famotidine), 20 MG ORAL DAILY, (Reported) Ferrous Sulfate* (Ferrous Sulfate*), 325 MG ORAL THREE TIMES A DAY, (Reported) Furosemide (Furosemide), 80 MG ORAL DAILY, (Reported) Hydralazine HCl (Hydralazine HCl), 50 MG ORAL DAILY, (Reported) Lisinopril* (Lisinopril*), 10 MG ORAL DAILY, (Reported) Losartan Potassium* (Losartan Potassium*), 50 MG ORAL DAILY, (Reported) Metformin Hcl* (Glucophage*), 500 MG ORAL TWICE A DAY, (Reported) Mirtazapine* (Mirtazapine*), 15 MG ORAL BEDTIME, (Reported) Pantoprazole Sodium (Protonix), 40 MG GT DAILY, (Reported) Potassium Chloride* (K-Dur*), 10 MEQ ORAL DAILY, (Reported) Rifaximin* (Xifaxan*), 200 MG ORAL THREE TIMES A DAY, (Reported) Spironolact/Hydrochlorothiazid (Spironolactone-Hctz 25-25 Tab), 1 TAB ORAL TWICE A DAY, (Reported) Warfarin Sod* (Coumadin*), 10 MG ORAL TWICE A DAY, (Reported) Warfarin Sod* (Warfarin Sod*), 2 MG ORAL DAILY, (Reported) Miscellaneous Medications Calcium Citrate/Vitamin D3 (Calcitrate + Vit D Caplet), 1 EACH PO, (Reported) Glipizide (Glipizide), 10 MG PO, (Reported) Metolazone (Metolazone), 5 MG PO, (Reported) Patient History History Provided By: Family Member, Medical Record, PMD Healthcare decision maker Resuscitation status Full Code Advanced Directive on File No Past Medical/Surgical History Past Medical/Surgical History: (1) Hyperglycemia (2) Renal failure (3) UTI (urinary tract infection) (4) Elevated troponin (5) Hepatic encephalopathy (6) Liver cirrhosis (7) Hypoalbuminemia (8) Congestive heart failure (9) Anemia (10) CHF (congestive heart failure) (11) Hypoglycemia (12) Hyponatremia (13) Decreased urine volume (14) HTN (hypertension) (15) ARF (acute renal failure) (16) Venous stasis of both lower extremities (17) encephalopathy due to toxin (18) Anemia in chronic kidney disease (CKD) (19) CKD (chronic kidney disease) (20) Atrial fibrillation Review of Systems All Other Systems: negative except mentioned in HPI Physical Exam General Appearance: no apparent distress, alert Lines, tubes and drains: peripheral HEENT: mucous membranes moist Neck: normal inspection Respiratory/Chest: no respiratory distress Cardiovascular/Chest: regular rhythm Abdomen: soft, no organomegaly, no mass Extremities: normal inspection, other Skin Exam: other Last 24 Hour Vital Signs Date Time Temp Pulse Resp B/P (MAP) Pulse Ox O2 Delivery O2 Flow Rate FiO2 04/05/18 12:00 136/64 04/05/18 09:13 75 104/62 04/05/18 09:13 75 104/62 04/05/18 08:00 97.3 75 21 104/62 (76) 99 04/05/18 06:20 127/86 04/05/18 04:00 97.5 72 22 127/86 (100) 99 04/05/18 03:57 71 04/04/18 23:40 72 04/04/18 23:25 115/59 04/04/18 23:23 98.0 77 20 115/59 (77) 100 04/04/18 21:54 71 121/61 04/04/18 21:00 Room Air 04/04/18 20:00 97.4 71 22 121/61 (81) 97 04/04/18 19:36 70 04/04/18 16:00 97.9 71 21 108/59 (75) 99 04/04/18 16:00 72 Intake and Output 04/04/18 04/05/18 19:00 07:00 Intake Total 560 ml Output Total 400 ml Balance 560 ml -400 ml Intake Oral 560 ml Output Urine Total 400 ml # Bowel Movements 3 1 Laboratory Tests Test 04/05/18 05:10 White Blood Count 6.1 K/UL (4.8-10.8) Red Blood Count 2.41 M/UL (4.20-5.40) L Hemoglobin 7.6 G/DL (12.0-16.0) L Hematocrit 23.3 % (37.0-47.0) L Mean Corpuscular Volume 97 FL (80-99) Mean Corpuscular Hemoglobin 31.7 PG (27.0-31.0) H Mean Corpuscular Hemoglobin Concent 32.8 G/DL (32.0-36.0) Red Cell Distribution Width 17.4 % (11.6-14.8) H Platelet Count 56 K/UL (150-450) L Mean Platelet Volume 7.8 FL (6.5-10.1) Neutrophils (%) (Auto) % (45.0-75.0) Lymphocytes (%) (Auto) % (20.0-45.0) Monocytes (%) (Auto) % (1.0-10.0) Eosinophils (%) (Auto) % (0.0-3.0) Basophils (%) (Auto) % (0.0-2.0) Differential Total Cells Counted 100 Neutrophils % (Manual) 65 % (45-75) Lymphocytes % (Manual) 17 % (20-45) L Monocytes % (Manual) 6 % (1-10) Eosinophils % (Manual) 12 % (0-3) H Basophils % (Manual) 0 % (0-2) Band Neutrophils 0 % (0-8) Platelet Estimate Decreased L Platelet Morphology Normal Hypochromasia 1+ Anisocytosis 1+ Prothrombin Time 15.5 SEC (9.30-11.50) H Prothromb Time International Ratio 1.5 (0.9-1.1) H Sodium Level 143 MMOL/L (136-145) Potassium Level 3.6 MMOL/L (3.5-5.1) Chloride Level 114 MMOL/L (98-107) H Carbon Dioxide Level 13 MMOL/L (21-32) L Anion Gap 16 mmol/L (5-15) H Blood Urea Nitrogen 52 mg/dL (7-18) H Creatinine 3.5 MG/DL (0.55-1.30) H Estimat Glomerular Filtration Rate mL/min (>60) Glucose Level 134 MG/DL (74-106) H Uric Acid 9.6 MG/DL (2.6-7.2) H Calcium Level 9.1 MG/DL (8.5-10.1) Phosphorus Level 3.0 MG/DL (2.5-4.9) Magnesium Level 1.9 MG/DL (1.8-2.4) Total Bilirubin 0.7 MG/DL (0.2-1.0) Aspartate Amino Transf (AST/SGOT) 18 U/L (15-37) Alanine Aminotransferase (ALT/SGPT) 19 U/L (12-78) Alkaline Phosphatase 80 U/L (46-116) Ammonia 68 umol/L (11-32) H Troponin I 0.074 ng/mL (0.000-0.056) C-Reactive Protein, Quantitative 2.3 mg/dL (0.00-0.90) H Pro-B-Type Natriuretic Peptide 95435 pg/mL (0-125) H Total Protein 5.6 G/DL (6.4-8.2) L Albumin 2.5 G/DL (3.4-5.0) L Globulin 3.1 g/dL Albumin/Globulin Ratio 0.8 (1.0-2.7) L Height (Feet): 5 Height (Inches): 5.00 Weight (Pounds): 160 Medications Current Medications Medications (Trade) Dose Ordered Sig/Anum Route PRN Reason Start Time Stop Time Status Last Admin Dose Admin Acetaminophen (Tylenol) 650 mg Q4H PRN ORAL fever 04/02/18 13:45 05/02/18 13:44 Amlodipine Besylate (Norvasc) 5 mg DAILY ORAL 04/04/18 09:00 05/03/18 08:59 04/05/18 09:13 Aspirin (ASA) 81 mg DAILY ORAL 04/04/18 12:30 05/04/18 12:29 04/05/18 09:13 Carvedilol (Coreg) 6.25 mg EVERY 12 HOURS ORAL 04/02/18 21:00 05/02/18 20:59 04/05/18 09:13 Cefepime HCl 0.5 gm/Dextrose 55 ml @ 110 mls/hr Q24H IV 04/04/18 17:00 04/11/18 16:59 04/04/18 17:08 Dextrose (Dextrose 50%) 25 ml Q30M PRN IV Hypoglycemia 04/03/18 07:15 05/03/18 07:14 Dextrose (Dextrose 50%) 50 ml Q30M PRN IV Hypoglycemia 04/03/18 07:15 05/03/18 07:14 Hydralazine HCl (Apresoline) 10 mg Q8HR ORAL 04/03/18 22:00 05/03/18 08:59 04/05/18 06:20 Insulin Aspart (NovoLOG) BEFORE MEALS AND HS SUBQ 04/03/18 11:30 05/03/18 11:29 04/05/18 11:53 Lactulose (Cephulac) 30 gm Q6HR ORAL 04/02/18 18:00 05/02/18 17:59 04/05/18 11:28 Lorazepam (Ativan 2mg/ml 1ml) 0.5 mg Q4H PRN IV For Anxiety 04/02/18 13:45 04/09/18 13:44 Midodrine (Pro-Amatine) 2.5 mg TID ORAL 04/05/18 10:30 05/05/18 10:29 Mirtazapine (Remeron) 15 mg BEDTIME ORAL 04/02/18 21:00 05/02/18 20:59 04/04/18 21:54 Morphine Sulfate (Morphine Sulfate) 2 mg Q4H PRN IVP For Pain 04/02/18 13:45 04/09/18 13:44 Nitroglycerin (Ntg) 1 patch Q24H TDERMAL 04/04/18 12:30 05/04/18 12:29 04/05/18 12:00 Octreotide Acetate 500 mcg/ Sodium Chloride 500 ml @ 50 mls/hr Q10H IV 04/05/18 10:30 05/05/18 10:29 04/05/18 11:17 Ondansetron HCl (Zofran) 4 mg Q6H PRN IVP Nausea & Vomiting 04/02/18 13:45 05/02/18 13:44 Pantoprazole (Protonix) 40 mg EVERY 12 HOURS ORAL 04/03/18 21:00 05/03/18 20:59 04/05/18 09:14 Polyethylene Glycol (Miralax) 17 gm HSPRN PRN ORAL Constipation 04/02/18 13:45 05/02/18 13:44 Rifaximin (Xifaxan) 550 mg EVERY 12 HOURS ORAL 04/03/18 21:00 04/10/18 20:59 04/05/18 09:13 Sodium Chloride 1,000 ml @ 75 mls/hr [id number] IV 04/04/18 12:30 05/04/18 12:29 04/05/18 02:08 Assessment/Plan Problem List: (1) Stage III pressure ulcer of sacral region Assessment & Plan: Pt presents with stage 3 full thickness pressure injury sacral cleft(L)0.8 cm x (W)0.5cmx (D00.1cm ,wound bed viable ,(+) maceration along borders with additional shearing L buttocks with non-blanching erythema R and L buttocks. Dark skin tone without induration noted to sacrum.Incontinence associated dermmatitis noted to perieum and bilat groin areas. Intact blood blister noted to R st metatarsal head (L)0.9cm x (W01.3cm .Periwound is intact without erythema. Reabsorbing blood blister R heel (L)4.9cm x (W)5.1cm. Periwound is blanchable. Full thickness pressure injury to L heel (L)1cm x (W)1.2cm x (D)0.2cm .Wound bed moist -viable ,(+) maceration along borders ,periwound fluctuant with non- blanching erythema. Tx.Plan: Cleanse sacral wound with Saline .Apply Triad paste .Cover with Optifoam drsg Daily and prn. Apply Benzoin Tincture To R heel blister.Cover with ABD pad and wrap with kerlix every 3 days and prn. Cleanse L heel wound with Saline . Apply Hydrogel .Cavilon Skin Barrier periwound .Cover with Optifoam drsg daily and prn. Apply Triad Paste to groin and perieum with each perineal care. Reposition at least every 2 hours or as tolerated. Off-load heels with pillow. Support surface mattress. ICD Codes: L89.153 - Pressure ulcer of sacral region, stage 3 SNOMED: [id number], [id number] Justo Acosta Apr 05, 2018 13:27
--- NOTE | 2018-04-05 13:48 | Nephrology Progress Note ---
Assessment/Plan Problem List: (1) ARF (acute renal failure) (2) Liver cirrhosis (3) UTI (urinary tract infection) (4) encephalopathy due to toxin (5) Venous stasis of both lower extremities (6) Anemia in chronic kidney disease (CKD) (7) CKD (chronic kidney disease) Assessment: diabetic nephropathy Assessment Renal failure- acute on Chronic Diabetic nephropathy Anemia of CKD Pacer Metabolic encephalopathy DM OOC Elevated Troponin Cellulitis and PVD legs UTI Plan Lower BP meds- stop Midodrin for now Sandostatin IV Devlin keep BP and BS under control Anemia dhaliwal Avoid nephrotoxics St eval slow hydrate stop asa low platelets nitro discussed with RN Subjective ROS Limited/Unobtainable: No Constitutional: Reports: malaise, weakness Objective Objective Last 24 Hour Vital Signs Date Time Temp Pulse Resp B/P (MAP) Pulse Ox O2 Delivery O2 Flow Rate FiO2 04/05/18 12:00 136/64 04/05/18 09:13 75 104/62 04/05/18 09:13 75 104/62 04/05/18 08:00 97.3 75 21 104/62 (76) 99 04/05/18 06:20 127/86 04/05/18 04:00 97.5 72 22 127/86 (100) 99 04/05/18 03:57 71 04/04/18 23:40 72 04/04/18 23:25 115/59 04/04/18 23:23 98.0 77 20 115/59 (77) 100 04/04/18 21:54 71 121/61 04/04/18 21:00 Room Air 04/04/18 20:00 97.4 71 22 121/61 (81) 97 04/04/18 19:36 70 04/04/18 16:00 97.9 71 21 108/59 (75) 99 04/04/18 16:00 72 Intake and Output 04/04/18 04/05/18 19:00 07:00 Intake Total 560 ml Output Total 400 ml Balance 560 ml -400 ml Intake Oral 560 ml Output Urine Total 400 ml # Bowel Movements 3 1 Laboratory Tests 04/05/18 05:10: White Blood Count 6.1, Red Blood Count 2.41L, Hemoglobin 7.6L, Hematocrit 23.3L , Mean Corpuscular Volume 97, Mean Corpuscular Hemoglobin 31.7H, Mean Corpuscular Hemoglobin Concent 32.8, Red Cell Distribution Width 17.4H, Platelet Count 56L, Mean Platelet Volume 7.8, Neutrophils (%) (Auto) , Lymphocytes (%) (Auto) , Monocytes (%) (Auto) , Eosinophils (%) (Auto) , Basophils (%) (Auto) , Differential Total Cells Counted 100, Neutrophils % ( Manual) 65, Lymphocytes % (Manual) 17L, Monocytes % (Manual) 6, Eosinophils % ( Manual) 12H, Basophils % (Manual) 0, Band Neutrophils 0, Platelet Estimate DecreasedL, Platelet Morphology Normal, Hypochromasia 1+, Anisocytosis 1+, Prothrombin Time 15.5H, Prothromb Time International Ratio 1.5H, Sodium Level 143, Potassium Level 3.6, Chloride Level 114H, Carbon Dioxide Level 13L, Anion Gap 16H, Blood Urea Nitrogen 52H, Creatinine 3.5H, Estimat Glomerular Filtration Rate , Glucose Level 134H, Uric Acid 9.6H, Calcium Level 9.1, Phosphorus Level 3.0, Magnesium Level 1.9, Total Bilirubin 0.7, Aspartate Amino Transf (AST/SGOT) 18, Alanine Aminotransferase (ALT/SGPT) 19, Alkaline Phosphatase 80, Ammonia 68H, Troponin I 0.074H, C-Reactive Protein, Quantitative 2.3H, Pro-B-Type Natriuretic Peptide [id number], Total Protein 5.6L, Albumin 2.5L, Globulin 3.1, Albumin/Globulin Ratio 0.8L Height (Feet): 5 Height (Inches): 5.00 Weight (Pounds): 160 General Appearance: no apparent distress, lethargic Cardiovascular: normal rate Respiratory/Chest: decreased breath sounds Abdomen: distended Elie Brooks MD Apr 05, 2018 13:48
[2018-04-05 16:00] VITALS: BP 137/67
--- NOTE | 2018-04-05 16:26 | Internal Med Progress Note ---
Subjective Physician Name Carrillo Clay Attending Physician Carrillo Clay MD Current Medications Medications (Trade) Dose Ordered Sig/Anum Route PRN Reason Start Time Stop Time Status Last Admin Dose Admin Acetaminophen (Tylenol) 650 mg Q4H PRN ORAL fever 04/02/18 13:45 05/02/18 13:44 Carvedilol (Coreg) 6.25 mg EVERY 12 HOURS ORAL 04/02/18 21:00 05/02/18 20:59 04/05/18 09:13 Cefepime HCl 0.5 gm/Dextrose 55 ml @ 110 mls/hr Q24H IV 04/04/18 17:00 04/11/18 16:59 04/04/18 17:08 Dextrose (Dextrose 50%) 25 ml Q30M PRN IV Hypoglycemia 04/03/18 07:15 05/03/18 07:14 Dextrose (Dextrose 50%) 50 ml Q30M PRN IV Hypoglycemia 04/03/18 07:15 05/03/18 07:14 Hydralazine HCl (Apresoline) 10 mg Q6HR ORAL 04/05/18 18:00 05/03/18 08:59 Insulin Aspart (NovoLOG) BEFORE MEALS AND HS SUBQ 04/03/18 11:30 05/03/18 11:29 04/05/18 11:53 Lactulose (Cephulac) 30 gm Q6HR ORAL 04/02/18 18:00 05/02/18 17:59 04/05/18 11:28 Lorazepam (Ativan 2mg/ml 1ml) 0.5 mg Q4H PRN IV For Anxiety 04/02/18 13:45 04/09/18 13:44 Mirtazapine (Remeron) 15 mg BEDTIME ORAL 04/02/18 21:00 05/02/18 20:59 04/04/18 21:54 Morphine Sulfate (Morphine Sulfate) 2 mg Q4H PRN IVP For Pain 04/02/18 13:45 04/09/18 13:44 Nitroglycerin (Ntg) 1 patch Q24H TDERMAL 04/04/18 12:30 05/04/18 12:29 04/05/18 12:00 Octreotide Acetate 500 mcg/ Sodium Chloride 500 ml @ 50 mls/hr Q10H IV 04/05/18 10:30 05/05/18 10:29 04/05/18 11:17 Ondansetron HCl (Zofran) 4 mg Q6H PRN IVP Nausea & Vomiting 04/02/18 13:45 05/02/18 13:44 Pantoprazole (Protonix) 40 mg EVERY 12 HOURS ORAL 04/03/18 21:00 05/03/18 20:59 04/05/18 09:14 Polyethylene Glycol (Miralax) 17 gm HSPRN PRN ORAL Constipation 04/02/18 13:45 05/02/18 13:44 Rifaximin (Xifaxan) 550 mg EVERY 12 HOURS ORAL 04/03/18 21:00 04/10/18 20:59 04/05/18 09:13 Sodium Chloride 1,000 ml @ 75 mls/hr [id number] IV 04/04/18 12:30 05/04/18 12:29 04/05/18 02:08 Allergies: Coded Allergies: No Known Allergies (Unverified , 10/04/15) Subjective awake, more responsive, alert, daughter at bedside, NAD Objective Last Vital Signs Date Time Temp Pulse Resp B/P (MAP) Pulse Ox O2 Delivery O2 Flow Rate FiO2 04/05/18 12:00 97.8 70 20 137/64 (88) 99 04/04/18 21:00 Room Air Laboratory Tests Test 04/05/18 05:10 White Blood Count 6.1 K/UL (4.8-10.8) Red Blood Count 2.41 M/UL (4.20-5.40) L Hemoglobin 7.6 G/DL (12.0-16.0) L Hematocrit 23.3 % (37.0-47.0) L Mean Corpuscular Volume 97 FL (80-99) Mean Corpuscular Hemoglobin 31.7 PG (27.0-31.0) H Mean Corpuscular Hemoglobin Concent 32.8 G/DL (32.0-36.0) Red Cell Distribution Width 17.4 % (11.6-14.8) H Platelet Count 56 K/UL (150-450) L Mean Platelet Volume 7.8 FL (6.5-10.1) Neutrophils (%) (Auto) % (45.0-75.0) Lymphocytes (%) (Auto) % (20.0-45.0) Monocytes (%) (Auto) % (1.0-10.0) Eosinophils (%) (Auto) % (0.0-3.0) Basophils (%) (Auto) % (0.0-2.0) Differential Total Cells Counted 100 Neutrophils % (Manual) 65 % (45-75) Lymphocytes % (Manual) 17 % (20-45) L Monocytes % (Manual) 6 % (1-10) Eosinophils % (Manual) 12 % (0-3) H Basophils % (Manual) 0 % (0-2) Band Neutrophils 0 % (0-8) Platelet Estimate Decreased L Platelet Morphology Normal Hypochromasia 1+ Anisocytosis 1+ Prothrombin Time 15.5 SEC (9.30-11.50) H Prothromb Time International Ratio 1.5 (0.9-1.1) H Sodium Level 143 MMOL/L (136-145) Potassium Level 3.6 MMOL/L (3.5-5.1) Chloride Level 114 MMOL/L (98-107) H Carbon Dioxide Level 13 MMOL/L (21-32) L Anion Gap 16 mmol/L (5-15) H Blood Urea Nitrogen 52 mg/dL (7-18) H Creatinine 3.5 MG/DL (0.55-1.30) H Estimat Glomerular Filtration Rate mL/min (>60) Glucose Level 134 MG/DL (74-106) H Uric Acid 9.6 MG/DL (2.6-7.2) H Calcium Level 9.1 MG/DL (8.5-10.1) Phosphorus Level 3.0 MG/DL (2.5-4.9) Magnesium Level 1.9 MG/DL (1.8-2.4) Total Bilirubin 0.7 MG/DL (0.2-1.0) Aspartate Amino Transf (AST/SGOT) 18 U/L (15-37) Alanine Aminotransferase (ALT/SGPT) 19 U/L (12-78) Alkaline Phosphatase 80 U/L (46-116) Ammonia 68 umol/L (11-32) H Troponin I 0.074 ng/mL (0.000-0.056) C-Reactive Protein, Quantitative 2.3 mg/dL (0.00-0.90) H Pro-B-Type Natriuretic Peptide 62721 pg/mL (0-125) H Total Protein 5.6 G/DL (6.4-8.2) L Albumin 2.5 G/DL (3.4-5.0) L Globulin 3.1 g/dL Albumin/Globulin Ratio 0.8 (1.0-2.7) L Intake and Output 04/04/18 04/05/18 19:00 07:00 Intake Total 560 ml Output Total 400 ml Balance 560 ml -400 ml Intake Oral 560 ml Output Urine Total 400 ml # Bowel Movements 3 1 Objective General: No acute distress, awake and more responsive. HEENT: NCAT, sclera anicteric, PERRL, EOMI. Neck: Supple, no significant jugular venous distention, Lungs: Fair inspiratory effort, no accessory muscle use, decrease air on bases, no Wheeze or Rales. Heart: Regular rate and rhythm, normal S1/S2, no murmurs Abdomen: soft, nontender, nondistended. Normoactive bowel sounds, obesity. / Rectal: Refused and deferred. Extremities: No Cyanosis , clubbing or edema. Bilateral feet dressing. Neuro: A&O x 3, Able to move all extremities Skin: warm, no rashes. Assessment/Plan Assessment/Plan (1) Atrial fibrillation (2) Hepatic encephalopathy (3) Liver cirrhosis (4) HTN (hypertension) (5) CHF (congestive heart failure) (6) CKD (chronic kidney disease) stage 3 (7) Hepatorenal syndrome. Plan: F/u with GI recommendations DC planning for 1-2 days Abx: Cefepime IV Transfuse 1 U PRBC Daughter at bedside , discuss regarding plan of care and Discharge planning. on Sandostatin F/u with labs and cultures Full code wound care Carrillo Clay MD Apr 05, 2018 16:26
[2018-04-05] MEDS: Cefepime HCl 0.5 GM in D5W 55 ML IV SCH (16:42)
--- NOTE | 2018-04-05 18:29 | Consultation ---
History of Present Illness General Date patient seen: Apr 05, 2018 Time patient seen: 18:24 Chief Complaint: Altered Level of Consciousness Referring physician: ANNALISA HALL Reason for Consultation: sacral ulcer Present Illness HPI Patient brought by RA from home due to CHRISTOPHEROC, AAO x1. She has cirrhosis and CKD. Hx of PPM. Cardiology consulted for elevated troponin. No chest pain. Allergies: Coded Allergies: No Known Allergies (Unverified , 10/04/15) Medication History Scheduled Albuterol Sulfate (Ventolin Hfa), 2 PUFFS INH EVERY 6 HOURS, (Reported) Amlodipine Besylate (Norvasc), 5 MG ORAL DAILY, (Reported) Aspirin (Ecotrin), 81 MG PO DAILY, (Reported) Atorvastatin (Lipitor), 80 MG ORAL BEDTIME, (Reported) Bumetanide* (Bumetanide*), 2 MG ORAL DAILY, (Reported) Carvedilol* (Carvedilol*), 6.25 MG ORAL EVERY 12 HOURS, (Reported) Cholecalciferol (Vitamin D3)* (Vitamin D*), 2,000 UNITS ORAL DAILY, (Reported) Docusate Sodium (Doc-Q-Lace), 100 MG ORAL DAILY, (Reported) Docusate Sodium* (Docusate Sodium*), 100 MG ORAL TWICE A DAY, (Reported) Famotidine (Famotidine), 20 MG ORAL DAILY, (Reported) Ferrous Sulfate* (Ferrous Sulfate*), 325 MG ORAL THREE TIMES A DAY, (Reported) Furosemide (Furosemide), 80 MG ORAL DAILY, (Reported) Hydralazine HCl (Hydralazine HCl), 50 MG ORAL DAILY, (Reported) Lisinopril* (Lisinopril*), 10 MG ORAL DAILY, (Reported) Losartan Potassium* (Losartan Potassium*), 50 MG ORAL DAILY, (Reported) Metformin Hcl* (Glucophage*), 500 MG ORAL TWICE A DAY, (Reported) Mirtazapine* (Mirtazapine*), 15 MG ORAL BEDTIME, (Reported) Pantoprazole Sodium (Protonix), 40 MG GT DAILY, (Reported) Potassium Chloride* (K-Dur*), 10 MEQ ORAL DAILY, (Reported) Rifaximin* (Xifaxan*), 200 MG ORAL THREE TIMES A DAY, (Reported) Spironolact/Hydrochlorothiazid (Spironolactone-Hctz 25-25 Tab), 1 TAB ORAL TWICE A DAY, (Reported) Warfarin Sod* (Coumadin*), 10 MG ORAL TWICE A DAY, (Reported) Warfarin Sod* (Warfarin Sod*), 2 MG ORAL DAILY, (Reported) Miscellaneous Medications Calcium Citrate/Vitamin D3 (Calcitrate + Vit D Caplet), 1 EACH PO, (Reported) Glipizide (Glipizide), 10 MG PO, (Reported) Metolazone (Metolazone), 5 MG PO, (Reported) Patient History Healthcare decision maker Resuscitation status Full Code Advanced Directive on File No Review of Systems Constitutional: Reports: no symptoms Eye: Reports: no symptoms ENT: Reports: no symptoms Respiratory: Reports: no symptoms Cardiovascular: Reports: no symptoms Gastrointestinal: Reports: no symptoms Genitourinary: Reports: no symptoms Musculoskeletal: Reports: no symptoms Skin: Reports: no symptoms Psychiatric: Reports: no symptoms Neurological: Reports: no symptoms Endocrine: Reports: no symptoms Hematologic/Lymphatic: Reports: no symptoms Physical Exam General Appearance: no apparent distress, lethargic, confused Lines, tubes and drains: peripheral HEENT: normocephalic, atraumatic, anicteric Neck: non-tender, normal alignment, supple, normal inspection Respiratory/Chest: chest wall non-tender, lungs clear, normal breath sounds Cardiovascular/Chest: normal peripheral pulses, normal rate, regular rhythm Abdomen: normal bowel sounds, distended, guarding, rebound Extremities: normal range of motion, non-tender, normal inspection 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, no motor/sensory deficits, abnormal gait , motor weakness, sensory deficit, disoriented Last 24 Hour Vital Signs Date Time Temp Pulse Resp B/P (MAP) Pulse Ox O2 Delivery O2 Flow Rate FiO2 04/05/18 17:51 137/67 04/05/18 16:00 73 04/05/18 16:00 97.8 70 21 137/67 (90) 99 04/05/18 12:00 97.8 70 20 137/64 (88) 99 04/05/18 12:00 136/64 04/05/18 12:00 70 04/05/18 09:13 75 104/62 04/05/18 09:13 75 104/62 04/05/18 09:00 Room Air 04/05/18 08:00 75 04/05/18 08:00 97.3 75 21 104/62 (76) 99 04/05/18 06:20 127/86 04/05/18 04:00 97.5 72 22 127/86 (100) 99 04/05/18 03:57 71 04/04/18 23:40 72 04/04/18 23:25 115/59 04/04/18 23:23 98.0 77 20 115/59 (77) 100 04/04/18 21:54 71 121/61 04/04/18 21:00 Room Air 04/04/18 20:00 97.4 71 22 121/61 (81) 97 04/04/18 19:36 70 Intake and Output 04/04/18 04/05/18 19:00 07:00 Intake Total 560 ml Output Total 400 ml Balance 560 ml -400 ml Intake Oral 560 ml Output Urine Total 400 ml # Bowel Movements 3 1 Laboratory Tests Test 04/05/18 05:10 White Blood Count 6.1 K/UL (4.8-10.8) Red Blood Count 2.41 M/UL (4.20-5.40) L Hemoglobin 7.6 G/DL (12.0-16.0) L Hematocrit 23.3 % (37.0-47.0) L Mean Corpuscular Volume 97 FL (80-99) Mean Corpuscular Hemoglobin 31.7 PG (27.0-31.0) H Mean Corpuscular Hemoglobin Concent 32.8 G/DL (32.0-36.0) Red Cell Distribution Width 17.4 % (11.6-14.8) H Platelet Count 56 K/UL (150-450) L Mean Platelet Volume 7.8 FL (6.5-10.1) Neutrophils (%) (Auto) % (45.0-75.0) Lymphocytes (%) (Auto) % (20.0-45.0) Monocytes (%) (Auto) % (1.0-10.0) Eosinophils (%) (Auto) % (0.0-3.0) Basophils (%) (Auto) % (0.0-2.0) Differential Total Cells Counted 100 Neutrophils % (Manual) 65 % (45-75) Lymphocytes % (Manual) 17 % (20-45) L Monocytes % (Manual) 6 % (1-10) Eosinophils % (Manual) 12 % (0-3) H Basophils % (Manual) 0 % (0-2) Band Neutrophils 0 % (0-8) Platelet Estimate Decreased L Platelet Morphology Normal Hypochromasia 1+ Anisocytosis 1+ Prothrombin Time 15.5 SEC (9.30-11.50) H Prothromb Time International Ratio 1.5 (0.9-1.1) H Sodium Level 143 MMOL/L (136-145) Potassium Level 3.6 MMOL/L (3.5-5.1) Chloride Level 114 MMOL/L (98-107) H Carbon Dioxide Level 13 MMOL/L (21-32) L Anion Gap 16 mmol/L (5-15) H Blood Urea Nitrogen 52 mg/dL (7-18) H Creatinine 3.5 MG/DL (0.55-1.30) H Estimat Glomerular Filtration Rate mL/min (>60) Glucose Level 134 MG/DL (74-106) H Uric Acid 9.6 MG/DL (2.6-7.2) H Calcium Level 9.1 MG/DL (8.5-10.1) Phosphorus Level 3.0 MG/DL (2.5-4.9) Magnesium Level 1.9 MG/DL (1.8-2.4) Total Bilirubin 0.7 MG/DL (0.2-1.0) Aspartate Amino Transf (AST/SGOT) 18 U/L (15-37) Alanine Aminotransferase (ALT/SGPT) 19 U/L (12-78) Alkaline Phosphatase 80 U/L (46-116) Ammonia 68 umol/L (11-32) H Troponin I 0.074 ng/mL (0.000-0.056) C-Reactive Protein, Quantitative 2.3 mg/dL (0.00-0.90) H Pro-B-Type Natriuretic Peptide 32764 pg/mL (0-125) H Total Protein 5.6 G/DL (6.4-8.2) L Albumin 2.5 G/DL (3.4-5.0) L Globulin 3.1 g/dL Albumin/Globulin Ratio 0.8 (1.0-2.7) L Height (Feet): 5 Height (Inches): 5.00 Weight (Pounds): 160 Medications Current Medications Medications (Trade) Dose Ordered Sig/Anum Route PRN Reason Start Time Stop Time Status Last Admin Dose Admin Acetaminophen (Tylenol) 650 mg Q4H PRN ORAL fever 04/02/18 13:45 05/02/18 13:44 Carvedilol (Coreg) 6.25 mg EVERY 12 HOURS ORAL 04/02/18 21:00 05/02/18 20:59 04/05/18 09:13 Cefepime HCl 0.5 gm/Dextrose 55 ml @ 110 mls/hr Q24H IV 04/04/18 17:00 04/11/18 16:59 04/05/18 16:42 Dextrose (Dextrose 50%) 25 ml Q30M PRN IV Hypoglycemia 04/03/18 07:15 05/03/18 07:14 Dextrose (Dextrose 50%) 50 ml Q30M PRN IV Hypoglycemia 04/03/18 07:15 05/03/18 07:14 Hydralazine HCl (Apresoline) 10 mg Q6HR ORAL 04/05/18 18:00 05/03/18 08:59 04/05/18 17:51 Insulin Aspart (NovoLOG) BEFORE MEALS AND HS SUBQ 04/03/18 11:30 05/03/18 11:29 04/05/18 16:43 Lactulose (Cephulac) 30 gm Q6HR ORAL 04/02/18 18:00 05/02/18 17:59 04/05/18 17:52 Lorazepam (Ativan 2mg/ml 1ml) 0.5 mg Q4H PRN IV For Anxiety 04/02/18 13:45 04/09/18 13:44 Mirtazapine (Remeron) 15 mg BEDTIME ORAL 04/02/18 21:00 05/02/18 20:59 04/04/18 21:54 Morphine Sulfate (Morphine Sulfate) 2 mg Q4H PRN IVP For Pain 04/02/18 13:45 04/09/18 13:44 Nitroglycerin (Ntg) 1 patch Q24H TDERMAL 04/04/18 12:30 05/04/18 12:29 04/05/18 12:00 Octreotide Acetate 500 mcg/ Sodium Chloride 500 ml @ 50 mls/hr Q10H IV 04/05/18 10:30 05/05/18 10:29 04/05/18 11:17 Ondansetron HCl (Zofran) 4 mg Q6H PRN IVP Nausea & Vomiting 04/02/18 13:45 05/02/18 13:44 Pantoprazole (Protonix) 40 mg EVERY 12 HOURS ORAL 04/03/18 21:00 05/03/18 20:59 04/05/18 09:14 Polyethylene Glycol (Miralax) 17 gm HSPRN PRN ORAL Constipation 04/02/18 13:45 05/02/18 13:44 Rifaximin (Xifaxan) 550 mg EVERY 12 HOURS ORAL 04/03/18 21:00 04/10/18 20:59 04/05/18 09:13 Sodium Chloride 1,000 ml @ 75 mls/hr [id number] IV 04/04/18 12:30 05/04/18 12:29 04/05/18 16:30 Assessment/Plan Status: stable, progressing Assessment/Plan Assessment: 1. Hypertension. 2. Diabetes type 2. 3. Chronic renal failure. 4. Anemia. 5. Cirrhosis of liver 6. Altered mental status Plan: Empiric Abx Cultures paracentesis Echocardiogram serial EKG/Troponin physical therapy speech evaluation Transfuse prbc Dhaval Brizuela MD Apr 05, 2018 18:29
--- NOTE | 2018-04-05 19:16 | Pulmonology Progress Note ---
Assessment/Plan Assessment/Plan Pulmonary Consultation Note Patient seen 04/04/2018 [facility] This patient is brought in by her daughter. She has many medical problems to include a cirrhosis and kidney disease. She is brought in by her daughter for altered mental status. Reports that she has recently been admitted to [facility] [[email or web address]. She was also in a nursing home facility. However, she is now at home and she is the primary caregiver. She feels that she can care for her. She has been home for about 3 weeks. She reports that over the past couple days she has been more altered. The patient herself has no specific complaints. There is no report of fever or chills. There is no nausea or vomiting. There are no other complaints. Improved mental status Allergies: No Known Allergies Past Medical History: Cirrhosis, DM, HTN, CHF, CKD, Anemia, HL Past Surgical History: pacemaker Social History: Denies: smoking, alcohol use, drug use All Other Systems: negative except mentioned in HPI Physical Exam Vital Signs Noted General Appearance: no apparent distress, GCS 15, non-toxic, lethargic - but arousable to simple questions., obese Head: normocephalic, atraumatic Eyes: bilateral eye normal inspection, bilateral eye PERRL ENT: hearing grossly normal, normal pharynx, no angioedema, normal voice Neck: full range of motion, supple/symm/no masses Respiratory: chest non-tender, lungs clear, normal breath sounds, no respiratory distress, no retraction, no accessory muscle use, speaking full sentences Cardiovascular #1: regular rate, rhythm, no edema Gastrointestinal: normal bowel sounds, non tender, soft, non-distended, no guarding, no rebound Rectal: deferred Musculoskeletal: back normal, gait/station normal, normal range of motion, non- tender, calf tenderness Neurologic: responsive, sensory intact, speech normal, grossly normal Psychiatric: mood/affect normal, no suicidal/homicidal ideation Skin: normal color, no rash, warm/dry, well hydrated Impression: Primary Impression: Hepatic encephalopathy Cirrhosis Diabetes CHF CKD Anemia Hyperglycemia Elevated troponin UTI (urinary tract infection) Plan Antibiotics Monitor Labs Lactulose IVF PRN O2 PRN Laboratory Tests Test 04/02/18 10:50 04/02/18 11:12 04/02/18 11:50 White Blood Count 8.5 K/UL (4.8-10.8) Red Blood Count 2.74 M/UL (4.20-5.40) L Hemoglobin 8.9 G/DL (12.0-16.0) L Hematocrit 26.5 % (37.0-47.0) L Mean Corpuscular Volume 97 FL (80-99) Mean Corpuscular Hemoglobin 32.4 PG (27.0-31.0) H Mean Corpuscular Hemoglobin Concent 33.5 G/DL (32.0-36.0) Red Cell Distribution Width 16.8 % (11.6-14.8) H Platelet Count 63 K/UL (150-450) L Mean Platelet Volume 9.5 FL (6.5-10.1) Neutrophils (%) (Auto) % (45.0-75.0) Lymphocytes (%) (Auto) % (20.0-45.0) Monocytes (%) (Auto) % (1.0-10.0) Eosinophils (%) (Auto) % (0.0-3.0) Basophils (%) (Auto) % (0.0-2.0) Differential Total Cells Counted 100 Neutrophils % (Manual) 72 % (45-75) Lymphocytes % (Manual) 11 % (20-45) L Monocytes % (Manual) 5 % (1-10) Eosinophils % (Manual) 12 % (0-3) H Basophils % (Manual) 0 % (0-2) Band Neutrophils 0 % (0-8) Platelet Estimate Decreased L Platelet Morphology Normal Hypochromasia 1+ Anisocytosis 1+ Sodium Level 135 MMOL/L (136-145) L Potassium Level 4.5 MMOL/L (3.5-5.1) Chloride Level 108 MMOL/L (98-107) H Carbon Dioxide Level 17 MMOL/L (21-32) L Anion Gap 10 mmol/L (5-15) Blood Urea Nitrogen 51 mg/dL (7-18) H Creatinine 3.8 MG/DL (0.55-1.30) H Estimate Glomerular Filtration Rate mL/min (>60) Glucose Level 260 MG/DL (74-106) H Lactic Acid Level 2.30 mmol/L (0.4-2.0) H 2.10 mmol/L (0.66-2.22) Calcium Level 9.6 MG/DL (8.5-10.1) Total Bilirubin 0.7 MG/DL (0.2-1.0) Aspartate Amino Transferase (AST) 6 U/L (15-37) L Alanine Aminotransferase (ALT) 21 U/L (12-78) Alkaline Phosphatase 91 U/L (46-116) Ammonia 149 umol/L (11-32) H Total Creatine Kinase 61 U/L (26-308) Creatine Kinase MB 1.0 NG/ML (0.0-3.6) Creatine Kinase MB Relative Index 1.6 Troponin I 0.079 ng/mL (0.000-0.056) Total Protein 6.3 G/DL (6.4-8.2) L Albumin 2.6 G/DL (3.4-5.0) L Globulin 3.7 g/dL Albumin/Globulin Ratio 0.7 (1.0-2.7) L Urine Color Pale yellow Urine Appearance Clear Urine pH 5 (4.5-8.0) Urine Specific Rush 1.010 (1.005-1.035) Urine Protein Negative (NEGATIVE) Urine Glucose (UA) Negative (NEGATIVE) Urine Ketones Negative (NEGATIVE) Urine Blood 2+ (NEGATIVE) H Urine Nitrite Negative (NEGATIVE) Urine Bilirubin Negative (NEGATIVE) Urine Urobilinogen Normal MG/DL (0.0-1.0) Urine Leukocyte Esterase 3+ (NEGATIVE) H Urine RBC 2-4 /HPF (0 - 2) H Urine WBC 10-15 /HPF (0 - 2) H Urine Squamous Epithelial Cells Few /LPF (NONE/OCC) Urine Bacteria Few /HPF (NONE) Microbiology Date/Time Source Procedure Growth Status 04/02/18 11:50 Nasal Nares Influenza Types A,B Antigen (ELIZA) - Final Complete EKG Diagnostic Results Rate: normal Rhythm: other - Paced ST Segments: no acute changes Chest X-Ray Diagnostic Results : Chest X-Ray Ordered: Yes # of Views/Limited/Complete: 1 View Indication: Other EP Interpretation: Yes Interpretation: no consolidation, no effusion, no pneumothorax, no acute cardiopulmonary disease Impression: No acute disease Electronically Signed by: Catrina Desir DO CT head Impression No acute findings. Specifically no intracranial bleed, mass effect or edema. Subjective ROS Limited/Unobtainable: No Allergies: Coded Allergies: No Known Allergies (Unverified , 10/04/15) Objective Last 24 Hour Vital Signs Date Time Temp Pulse Resp B/P (MAP) Pulse Ox O2 Delivery O2 Flow Rate FiO2 04/05/18 17:51 137/67 04/05/18 16:00 73 04/05/18 16:00 97.8 70 21 137/67 (90) 99 04/05/18 12:00 97.8 70 20 137/64 (88) 99 04/05/18 12:00 136/64 04/05/18 12:00 70 04/05/18 09:13 75 104/62 04/05/18 09:13 75 104/62 04/05/18 09:00 Room Air 04/05/18 08:00 75 04/05/18 08:00 97.3 75 21 104/62 (76) 99 04/05/18 06:20 127/86 04/05/18 04:00 97.5 72 22 127/86 (100) 99 04/05/18 03:57 71 04/04/18 23:40 72 04/04/18 23:25 115/59 04/04/18 23:23 98.0 77 20 115/59 (77) 100 04/04/18 21:54 71 121/61 04/04/18 21:00 Room Air 04/04/18 20:00 97.4 71 22 121/61 (81) 97 04/04/18 19:36 70 Intake and Output 04/04/18 04/05/18 19:00 07:00 Intake Total 560 ml Output Total 400 ml Balance 560 ml -400 ml Intake Oral 560 ml Output Urine Total 400 ml # Bowel Movements 3 1 Laboratory Tests 04/05/18 05:10: White Blood Count 6.1, Red Blood Count 2.41L, Hemoglobin 7.6L, Hematocrit 23.3L , Mean Corpuscular Volume 97, Mean Corpuscular Hemoglobin 31.7H, Mean Corpuscular Hemoglobin Concent 32.8, Red Cell Distribution Width 17.4H, Platelet Count 56L, Mean Platelet Volume 7.8, Neutrophils (%) (Auto) , Lymphocytes (%) (Auto) , Monocytes (%) (Auto) , Eosinophils (%) (Auto) , Basophils (%) (Auto) , Differential Total Cells Counted 100, Neutrophils % ( Manual) 65, Lymphocytes % (Manual) 17L, Monocytes % (Manual) 6, Eosinophils % ( Manual) 12H, Basophils % (Manual) 0, Band Neutrophils 0, Platelet Estimate DecreasedL, Platelet Morphology Normal, Hypochromasia 1+, Anisocytosis 1+, Prothrombin Time 15.5H, Prothromb Time International Ratio 1.5H, Sodium Level 143, Potassium Level 3.6, Chloride Level 114H, Carbon Dioxide Level 13L, Anion Gap 16H, Blood Urea Nitrogen 52H, Creatinine 3.5H, Estimat Glomerular Filtration Rate , Glucose Level 134H, Uric Acid 9.6H, Calcium Level 9.1, Phosphorus Level 3.0, Magnesium Level 1.9, Total Bilirubin 0.7, Aspartate Amino Transf (AST/SGOT) 18, Alanine Aminotransferase (ALT/SGPT) 19, Alkaline Phosphatase 80, Ammonia 68H, Troponin I 0.074H, C-Reactive Protein, Quantitative 2.3H, Pro-B-Type Natriuretic Peptide 16535O, Total Protein 5.6L, Albumin 2.5L, Globulin 3.1, Albumin/Globulin Ratio 0.8L Current Medications Medications (Trade) Dose Ordered Sig/Anum Route PRN Reason Start Time Stop Time Status Last Admin Dose Admin Acetaminophen (Tylenol) 650 mg Q4H PRN ORAL fever 04/02/18 13:45 05/02/18 13:44 Carvedilol (Coreg) 6.25 mg EVERY 12 HOURS ORAL 04/02/18 21:00 05/02/18 20:59 04/05/18 09:13 Cefepime HCl 0.5 gm/Dextrose 55 ml @ 110 mls/hr Q24H IV 04/04/18 17:00 04/11/18 16:59 04/05/18 16:42 Dextrose (Dextrose 50%) 25 ml Q30M PRN IV Hypoglycemia 04/03/18 07:15 05/03/18 07:14 Dextrose (Dextrose 50%) 50 ml Q30M PRN IV Hypoglycemia 04/03/18 07:15 05/03/18 07:14 Hydralazine HCl (Apresoline) 10 mg Q6HR ORAL 04/05/18 18:00 05/03/18 08:59 04/05/18 17:51 Insulin Aspart (NovoLOG) BEFORE MEALS AND HS SUBQ 04/03/18 11:30 05/03/18 11:29 04/05/18 16:43 Lactulose (Cephulac) 30 gm Q6HR ORAL 04/02/18 18:00 05/02/18 17:59 04/05/18 17:52 Lorazepam (Ativan 2mg/ml 1ml) 0.5 mg Q4H PRN IV For Anxiety 04/02/18 13:45 04/09/18 13:44 Mirtazapine (Remeron) 15 mg BEDTIME ORAL 04/02/18 21:00 05/02/18 20:59 04/04/18 21:54 Morphine Sulfate (Morphine Sulfate) 2 mg Q4H PRN IVP For Pain 04/02/18 13:45 04/09/18 13:44 Nitroglycerin (Ntg) 1 patch Q24H TDERMAL 04/04/18 12:30 05/04/18 12:29 04/05/18 12:00 Octreotide Acetate 500 mcg/ Sodium Chloride 500 ml @ 50 mls/hr Q10H IV 04/05/18 10:30 05/05/18 10:29 04/05/18 11:17 Ondansetron HCl (Zofran) 4 mg Q6H PRN IVP Nausea & Vomiting 04/02/18 13:45 05/02/18 13:44 Pantoprazole (Protonix) 40 mg EVERY 12 HOURS ORAL 04/03/18 21:00 05/03/18 20:59 04/05/18 09:14 Polyethylene Glycol (Miralax) 17 gm HSPRN PRN ORAL Constipation 04/02/18 13:45 05/02/18 13:44 Rifaximin (Xifaxan) 550 mg EVERY 12 HOURS ORAL 04/03/18 21:00 04/10/18 20:59 04/05/18 09:13 Sodium Chloride 1,000 ml @ 75 mls/hr [id number] IV 04/04/18 12:30 05/04/18 12:29 04/05/18 16:30 Dhaval Schulz MD Apr 05, 2018 19:16
[2018-04-05 20:00] VITALS: BP 136/70
--- NOTE | 2018-04-05 22:13 | General Progress Note ---
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 Status: unchanged Assessment/Plan seroquel prn remron 15mg qhs dc ambien Subjective Neurologic/Psychiatric: Reports: anxiety Allergies: Coded Allergies: No Known Allergies (Unverified , 10/04/15) Objective Last 24 Hour Vital Signs Date Time Temp Pulse Resp B/P (MAP) Pulse Ox O2 Delivery O2 Flow Rate FiO2 04/05/18 20:00 96.8 72 20 136/70 (92) 100 04/05/18 17:51 137/67 04/05/18 16:00 73 04/05/18 16:00 97.8 70 21 137/67 (90) 99 04/05/18 12:00 97.8 70 20 137/64 (88) 99 04/05/18 12:00 136/64 04/05/18 12:00 70 04/05/18 09:13 75 104/62 04/05/18 09:13 75 104/62 04/05/18 09:00 Room Air 04/05/18 08:00 75 04/05/18 08:00 97.3 75 21 104/62 (76) 99 04/05/18 06:20 127/86 04/05/18 04:00 97.5 72 22 127/86 (100) 99 04/05/18 03:57 71 04/04/18 23:40 72 04/04/18 23:25 115/59 04/04/18 23:23 98.0 77 20 115/59 (77) 100 Intake and Output 04/04/18 04/05/18 19:00 07:00 Intake Total 560 ml Output Total 400 ml Balance 560 ml -400 ml Intake Oral 560 ml Output Urine Total 400 ml # Bowel Movements 3 1 Laboratory Tests 04/05/18 05:10: White Blood Count 6.1, Red Blood Count 2.41L, Hemoglobin 7.6L, Hematocrit 23.3L , Mean Corpuscular Volume 97, Mean Corpuscular Hemoglobin 31.7H, Mean Corpuscular Hemoglobin Concent 32.8, Red Cell Distribution Width 17.4H, Platelet Count 56L, Mean Platelet Volume 7.8, Neutrophils (%) (Auto) , Lymphocytes (%) (Auto) , Monocytes (%) (Auto) , Eosinophils (%) (Auto) , Basophils (%) (Auto) , Differential Total Cells Counted 100, Neutrophils % ( Manual) 65, Lymphocytes % (Manual) 17L, Monocytes % (Manual) 6, Eosinophils % ( Manual) 12H, Basophils % (Manual) 0, Band Neutrophils 0, Platelet Estimate DecreasedL, Platelet Morphology Normal, Hypochromasia 1+, Anisocytosis 1+, Prothrombin Time 15.5H, Prothromb Time International Ratio 1.5H, Sodium Level 143, Potassium Level 3.6, Chloride Level 114H, Carbon Dioxide Level 13L, Anion Gap 16H, Blood Urea Nitrogen 52H, Creatinine 3.5H, Estimat Glomerular Filtration Rate , Glucose Level 134H, Uric Acid 9.6H, Calcium Level 9.1, Phosphorus Level 3.0, Magnesium Level 1.9, Total Bilirubin 0.7, Aspartate Amino Transf (AST/SGOT) 18, Alanine Aminotransferase (ALT/SGPT) 19, Alkaline Phosphatase 80, Ammonia 68H, Troponin I 0.074H, C-Reactive Protein, Quantitative 2.3H, Pro-B-Type Natriuretic Peptide 41707S, Total Protein 5.6L, Albumin 2.5L, Globulin 3.1, Albumin/Globulin Ratio 0.8L Height (Feet): 5 Height (Inches): 5.00 Weight (Pounds): 160 General Appearance: alert, agitated Gabe Pennington MD Apr 05, 2018 22:13
[2018-04-05 23:57] VITALS: BP 142/60
[2018-04-06 04:00] VITALS: BP 119/58
[2018-04-06] MEDS: HydrALAZINE 10mg Tab ORAL SCH ×2 (06:14→12:21)
[2018-04-06] MEDS: Lactulose 20gm/30ml UDC ORAL SCH ×2 (06:14→12:19)
[2018-04-06] MEDS: Octreotide Acetate 500 MCG in Sodium Chloride 500ML 499 ML IV SCH (06:15)
[2018-04-06] MEDS: NovoLOG Insulin Flexpen SUBQ SCH ×2 (06:17→12:22)
[2018-04-06 07:31] LABS: HEMATOCRIT 25.9 % (37.0-47.0); HEMOGLOBIN 8.6 G/DL (12.0-16.0); MEAN CORPUSCULAR VOLUME 95 FL (80-99); PLATELET COUNT 53 K/UL (150-450); RED BLOOD COUNT 2.72 M/UL (4.20-5.40); RED CELL DISTRIBUTION WIDTH 17.6 % (11.6-14.8); WHITE BLOOD COUNT 6.7 K/UL (4.8-10.8)
[2018-04-06 07:50] LABS: ALANINE AMINOTRANSFERASE 19 U/L (12-78); ALBUMIN 2.4 G/DL (3.4-5.0); ALBUMIN/GLOBULIN RATIO 0.8 (1.0-2.7); ALKALINE PHOSPHATASE 79 U/L (46-116); ANION GAP 16 mmol/L (5-15); ASPARTATE AMINO TRANSFERASE 19 U/L (15-37); BILIRUBIN,TOTAL 1.1 MG/DL (0.2-1.0); BLOOD UREA NITROGEN 48 mg/dL (7-18); CALCIUM 8.4 MG/DL (8.5-10.1); CARBON DIOXIDE 12 MMOL/L (21-32); CHLORIDE 113 MMOL/L (98-107); CREATININE 3.5 MG/DL (0.55-1.30); POTASSIUM 4.1 MMOL/L (3.5-5.1); SODIUM 141 MMOL/L (136-145)
[2018-04-06 07:51] LABS: BILIRUBIN,DIRECT 0.4 MG/DL (0.0-0.3)
[2018-04-06 08:00] VITALS: BP 145/76
[2018-04-06 08:07] LABS: PHOSPHORUS 3.7 MG/DL (2.5-4.9)
[2018-04-06] MEDS: Carvedilol 6.25mg Tab ORAL SCH (08:44)
--- NOTE | 2018-04-06 09:14 | General Progress Note ---
Assessment/Plan Problem List: (1) HTN (hypertension) ICD Codes: I10 - Essential (primary) hypertension SNOMED: 01951648 (2) Anemia ICD Codes: D64.9 - Anemia, unspecified SNOMED: 550538364 (3) Liver cirrhosis ICD Codes: K74.60 - Unspecified cirrhosis of liver SNOMED: 59296888 (4) Hepatic encephalopathy ICD Codes: K72.90 - Hepatic failure, unspecified without coma SNOMED: 54083700, 704734015, [id number] Assessment/Plan lactulose xifaxan ppi fu labs fu cardiology ? hepatorenal syndrome. on octreoride and midodrine Subjective ROS Limited/Unobtainable: No Allergies: Coded Allergies: No Known Allergies (Unverified , 10/04/15) Objective Last 24 Hour Vital Signs Date Time Temp Pulse Resp B/P (MAP) Pulse Ox O2 Delivery O2 Flow Rate FiO2 04/06/18 08:44 73 145/76 04/06/18 08:00 98.2 73 20 145/76 (99) 98 04/06/18 06:14 119/58 04/06/18 04:21 70 04/06/18 04:00 97.5 76 44 119/58 (78) 100 04/06/18 00:20 71 04/05/18 23:59 142/60 04/05/18 23:57 97.2 76 20 142/60 (87) 97 04/05/18 21:00 Room Air 04/05/18 21:00 72 136/70 04/05/18 20:02 71 04/05/18 20:00 96.8 72 20 136/70 (92) 100 04/05/18 17:51 137/67 04/05/18 16:00 73 04/05/18 16:00 97.8 70 21 137/67 (90) 99 04/05/18 12:00 97.8 70 20 137/64 (88) 99 04/05/18 12:00 136/64 04/05/18 12:00 70 Intake and Output 04/05/18 04/06/18 19:00 07:00 Intake Total 585 ml 950 ml Output Total 300 ml Balance 585 ml 650 ml Intake Oral 460 ml IV Total 125 ml 950 ml Output Urine Total 300 ml # Bowel Movements 2 1 Laboratory Tests 12/24/18 06:40: White Blood Count 6.7, Red Blood Count 2.72L, Hemoglobin 8.6L, Hematocrit 25.9L , Mean Corpuscular Volume 95, Mean Corpuscular Hemoglobin 31.8H, Mean Corpuscular Hemoglobin Concent 33.4, Red Cell Distribution Width 17.6H, Platelet Count 53L, Mean Platelet Volume 7.9, Neutrophils (%) (Auto) , Lymphocytes (%) (Auto) , Monocytes (%) (Auto) , Eosinophils (%) (Auto) , Basophils (%) (Auto) , Neutrophils % (Manual) [Pending], Lymphocytes % (Manual) [Pending], Platelet Estimate [Pending], Platelet Morphology [Pending], Sodium Level 141, Potassium Level 4.1, Chloride Level 113H, Carbon Dioxide Level 12L, Anion Gap 16H, Blood Urea Nitrogen 48H, Creatinine 3.5H, Estimat Glomerular Filtration Rate , Glucose Level 178H, Uric Acid 8.7H, Calcium Level 8.4L, Phosphorus Level 3.7, Magnesium Level 1.8, Total Bilirubin 1.1H, Direct Bilirubin 0.4H, Aspartate Amino Transf (AST/SGOT) 19, Alanine Aminotransferase ( ALT/SGPT) 19, Alkaline Phosphatase 79, Ammonia 90H, C-Reactive Protein, Quantitative 1.4H, Pro-B-Type Natriuretic Peptide 47970V, Total Protein 5.6L, Albumin 2.4L, Globulin 3.2, Albumin/Globulin Ratio 0.8L Height (Feet): 5 Height (Inches): 5.00 Weight (Pounds): 160 General Appearance: no apparent distress EENT: normal ENT inspection Neck: normal alignment Cardiovascular: normal rate Respiratory/Chest: decreased breath sounds Abdomen: normal bowel sounds, non tender, soft Extremities: non-tender Liam Frausto MD Apr 06, 2018 09:14
[2018-04-06] MEDS ORDERED: 1/2 NS 1000ml IV ONE (10:28)
--- NOTE | 2018-04-06 11:32 | Diagnostic Imaging Report ---
Indication: Abdominal distention Technique: Limited grayscale images of the abdomen in anticipation of paracentesis Comparison: none Findings: No intraperitoneal fluid could be demonstrated Impression: Sonography fails to demonstrate any intraperitoneal fluid. Paracentesis therefore not performed
[2018-04-06 12:00] VITALS: BP 144/63
[2018-04-06] MEDS: Nitroglycerin Patch 0.4mg TDERMAL SCH (12:21)
--- NOTE | 2018-04-06 13:06 | Nephrology Progress Note ---
Assessment/Plan Problem List: (1) ARF (acute renal failure) (2) Liver cirrhosis (3) UTI (urinary tract infection) (4) encephalopathy due to toxin (5) Venous stasis of both lower extremities (6) Anemia in chronic kidney disease (CKD) (7) CKD (chronic kidney disease) Assessment: diabetic nephropathy Assessment Renal failure- acute on Chronic Diabetic nephropathy Anemia of CKD Pacer Metabolic encephalopathy DM OOC Elevated Troponin Cellulitis and PVD legs UTI Plan start Bicitra up dose lactulose Lower BP meds- stop Midodrin for now Sandostatin IV Devlin keep BP and BS under control Anemia dhaliwal Avoid nephrotoxics St eval slow hydrate stop asa low platelets nitro discussed with RN Subjective ROS Limited/Unobtainable: No Constitutional: Reports: malaise, weakness Objective Objective Last 24 Hour Vital Signs Date Time Temp Pulse Resp B/P (MAP) Pulse Ox O2 Delivery O2 Flow Rate FiO2 04/06/18 12:21 127/78 04/06/18 12:21 127/78 04/06/18 12:00 98.0 70 20 144/63 (90) 96 04/06/18 08:44 73 145/76 04/06/18 08:00 98.2 73 20 145/76 (99) 98 04/06/18 08:00 71 04/06/18 06:14 119/58 04/06/18 04:21 70 04/06/18 04:00 97.5 76 44 119/58 (78) 100 04/06/18 00:20 71 04/05/18 23:59 142/60 04/05/18 23:57 97.2 76 20 142/60 (87) 97 04/05/18 21:00 Room Air 04/05/18 21:00 72 136/70 04/05/18 20:02 71 04/05/18 20:00 96.8 72 20 136/70 (92) 100 04/05/18 17:51 137/67 04/05/18 16:00 73 04/05/18 16:00 97.8 70 21 137/67 (90) 99 Intake and Output 04/05/18 04/06/18 18:59 06:59 Intake Total 460 ml 1075 ml Output Total 300 ml Balance 460 ml 775 ml Intake Oral 460 ml IV Total 1075 ml Output Urine Total 300 ml # Bowel Movements 2 1 Laboratory Tests 04/06/18 06:40: White Blood Count 6.7, Red Blood Count 2.72L, Hemoglobin 8.6L, Hematocrit 25.9L , Mean Corpuscular Volume 95, Mean Corpuscular Hemoglobin 31.8H, Mean Corpuscular Hemoglobin Concent 33.4, Red Cell Distribution Width 17.6H, Platelet Count 53L, Mean Platelet Volume 7.9, Neutrophils (%) (Auto) , Lymphocytes (%) (Auto) , Monocytes (%) (Auto) , Eosinophils (%) (Auto) , Basophils (%) (Auto) , Differential Total Cells Counted 100, Neutrophils % ( Manual) 63, Lymphocytes % (Manual) 20, Monocytes % (Manual) 8, Eosinophils % ( Manual) 9H, Basophils % (Manual) 0, Band Neutrophils 0, Platelet Estimate DecreasedL, Platelet Morphology Normal, Hypochromasia 1+, Anisocytosis 1+, Sodium Level 141, Potassium Level 4.1, Chloride Level 113H, Carbon Dioxide Level 12L, Anion Gap 16H, Blood Urea Nitrogen 48H, Creatinine 3.5H, Estimat Glomerular Filtration Rate , Glucose Level 178H, Uric Acid 8.7H, Calcium Level 8.4L, Phosphorus Level 3.7, Magnesium Level 1.8, Total Bilirubin 1.1H, Direct Bilirubin 0.4H, Aspartate Amino Transf (AST/SGOT) 19, Alanine Aminotransferase ( ALT/SGPT) 19, Alkaline Phosphatase 79, Ammonia 90H, C-Reactive Protein, Quantitative 1.4H, Pro-B-Type Natriuretic Peptide 53841I, Total Protein 5.6L, Albumin 2.4L, Globulin 3.2, Albumin/Globulin Ratio 0.8L Height (Feet): 5 Height (Inches): 5.00 Weight (Pounds): 160 General Appearance: no apparent distress, lethargic Abdomen: distended Elie Brooks MD Apr 06, 2018 13:06
[2018-04-06] MEDS ORDERED: LACTULOSE20 GM/301 ORAL (14:16)
[2018-04-06] MEDS ORDERED: XIFAXAN550 MG ORAL (14:16)
--- NOTE | 2018-04-06 14:18 | Internal Med Progress Note ---
Subjective Physician Name Carrillo Clay Attending Physician Carrillo Clay MD Current Medications Medications (Trade) Dose Ordered Sig/Anum Route PRN Reason Start Time Stop Time Status Last Admin Dose Admin Acetaminophen (Tylenol) 650 mg Q4H PRN ORAL fever 04/02/18 13:45 05/02/18 13:44 Carvedilol (Coreg) 6.25 mg EVERY 12 HOURS ORAL 04/02/18 21:00 05/02/18 20:59 04/06/18 08:44 Cefepime HCl 0.5 gm/Dextrose 55 ml @ 110 mls/hr Q24H IV 04/04/18 17:00 04/11/18 16:59 04/05/18 16:42 Dextrose (Dextrose 50%) 25 ml Q30M PRN IV Hypoglycemia 04/03/18 07:15 05/03/18 07:14 Dextrose (Dextrose 50%) 50 ml Q30M PRN IV Hypoglycemia 04/03/18 07:15 05/03/18 07:14 Hydralazine HCl (Apresoline) 20 mg Q6HR ORAL 04/06/18 18:00 05/03/18 08:59 Insulin Aspart (NovoLOG) BEFORE MEALS AND HS SUBQ 04/03/18 11:30 05/03/18 11:29 04/06/18 12:22 Lactulose (Cephulac) 45 gm Q6HR ORAL 04/06/18 18:00 05/02/18 17:59 Lorazepam (Ativan 2mg/ml 1ml) 0.5 mg Q4H PRN IV For Anxiety 04/02/18 13:45 04/09/18 13:44 Mirtazapine (Remeron) 15 mg BEDTIME ORAL 04/02/18 21:00 05/02/18 20:59 04/05/18 21:00 Morphine Sulfate (Morphine Sulfate) 2 mg Q4H PRN IVP For Pain 04/02/18 13:45 04/09/18 13:44 Nitroglycerin (Ntg) 1 patch Q24H TDERMAL 04/04/18 12:30 05/04/18 12:29 04/06/18 12:21 Octreotide Acetate 500 mcg/ Sodium Chloride 500 ml @ 50 mls/hr Q10H IV 04/05/18 10:30 05/05/18 10:29 04/06/18 06:15 Ondansetron HCl (Zofran) 4 mg Q6H PRN IVP Nausea & Vomiting 04/02/18 13:45 05/02/18 13:44 Pantoprazole (Protonix) 40 mg EVERY 12 HOURS ORAL 04/03/18 21:00 05/03/18 20:59 04/06/18 08:44 Polyethylene Glycol (Miralax) 17 gm HSPRN PRN ORAL Constipation 04/02/18 13:45 05/02/18 13:44 Rifaximin (Xifaxan) 550 mg EVERY 12 HOURS ORAL 04/03/18 21:00 04/10/18 20:59 04/06/18 08:44 Sodium Chloride 1,000 ml @ 75 mls/hr [id number] IV 04/04/18 12:30 05/04/18 12:29 04/06/18 05:21 Sodium Citrate (Bicitra) 30 ml EVERY 6 HOURS ORAL 04/06/18 18:00 05/06/18 17:59 Allergies: Coded Allergies: No Known Allergies (Unverified , 10/04/15) Subjective awake, responsive, alert, Son at bedside, NAD Objective Last Vital Signs Date Time Temp Pulse Resp B/P (MAP) Pulse Ox O2 Delivery O2 Flow Rate FiO2 04/06/18 12:21 127/78 04/06/18 12:00 98.0 70 20 96 04/06/18 09:00 Room Air Laboratory Tests Test 04/06/18 06:40 White Blood Count 6.7 K/UL (4.8-10.8) Red Blood Count 2.72 M/UL (4.20-5.40) L Hemoglobin 8.6 G/DL (12.0-16.0) L Hematocrit 25.9 % (37.0-47.0) L Mean Corpuscular Volume 95 FL (80-99) Mean Corpuscular Hemoglobin 31.8 PG (27.0-31.0) H Mean Corpuscular Hemoglobin Concent 33.4 G/DL (32.0-36.0) Red Cell Distribution Width 17.6 % (11.6-14.8) H Platelet Count 53 K/UL (150-450) L Mean Platelet Volume 7.9 FL (6.5-10.1) Neutrophils (%) (Auto) % (45.0-75.0) Lymphocytes (%) (Auto) % (20.0-45.0) Monocytes (%) (Auto) % (1.0-10.0) Eosinophils (%) (Auto) % (0.0-3.0) Basophils (%) (Auto) % (0.0-2.0) Differential Total Cells Counted 100 Neutrophils % (Manual) 63 % (45-75) Lymphocytes % (Manual) 20 % (20-45) Monocytes % (Manual) 8 % (1-10) Eosinophils % (Manual) 9 % (0-3) H Basophils % (Manual) 0 % (0-2) Band Neutrophils 0 % (0-8) Platelet Estimate Decreased L Platelet Morphology Normal Hypochromasia 1+ Anisocytosis 1+ Sodium Level 141 MMOL/L (136-145) Potassium Level 4.1 MMOL/L (3.5-5.1) Chloride Level 113 MMOL/L (98-107) H Carbon Dioxide Level 12 MMOL/L (21-32) L Anion Gap 16 mmol/L (5-15) H Blood Urea Nitrogen 48 mg/dL (7-18) H Creatinine 3.5 MG/DL (0.55-1.30) H Estimat Glomerular Filtration Rate mL/min (>60) Glucose Level 178 MG/DL (74-106) H Uric Acid 8.7 MG/DL (2.6-7.2) H Calcium Level 8.4 MG/DL (8.5-10.1) L Phosphorus Level 3.7 MG/DL (2.5-4.9) Magnesium Level 1.8 MG/DL (1.8-2.4) Total Bilirubin 1.1 MG/DL (0.2-1.0) H Direct Bilirubin 0.4 MG/DL (0.0-0.3) H Aspartate Amino Transf (AST/SGOT) 19 U/L (15-37) Alanine Aminotransferase (ALT/SGPT) 19 U/L (12-78) Alkaline Phosphatase 79 U/L (46-116) Ammonia 90 umol/L (11-32) H C-Reactive Protein, Quantitative 1.4 mg/dL (0.00-0.90) H Pro-B-Type Natriuretic Peptide 11107 pg/mL (0-125) H Total Protein 5.6 G/DL (6.4-8.2) L Albumin 2.4 G/DL (3.4-5.0) L Globulin 3.2 g/dL Albumin/Globulin Ratio 0.8 (1.0-2.7) L Intake and Output 04/05/18 04/06/18 18:59 06:59 Intake Total 460 ml 1075 ml Output Total 300 ml Balance 460 ml 775 ml Intake Oral 460 ml IV Total 1075 ml Output Urine Total 300 ml # Bowel Movements 2 1 Objective General: No acute distress, awake and more responsive. HEENT: NCAT, sclera anicteric, PERRL, EOMI. Neck: Supple, no significant jugular venous distention, Lungs: Fair inspiratory effort, no accessory muscle use, decrease air on bases, no Wheeze or Rales. Heart: Regular rate and rhythm, normal S1/S2, no murmurs Abdomen: soft, nontender, nondistended. Normoactive bowel sounds, obesity. / Rectal: Refused and deferred. Extremities: No Cyanosis , clubbing or edema. Bilateral feet dressing. Neuro: A&O x 3, Able to move all extremities Skin: warm, no rashes. Assessment/Plan Assessment/Plan (1) Atrial fibrillation (2) Hepatic encephalopathy (3) Liver cirrhosis (4) HTN (hypertension) (5) CHF (congestive heart failure) (6) CKD (chronic kidney disease) stage 3 (7) Hepatorenal syndrome. Plan: F/u with GI recommendations DC planning for today. Abx: Cefepime IV Transfuse 1 U PRBC Son at bedside , discuss regarding plan of care and Discharge planning. wean off Sandostatin F/u with labs and cultures Full code wound care Carrillo Clay MD Apr 06, 2018 14:18
--- NOTE | 2018-04-06 15:11 | Pulmonology Progress Note ---
Assessment/Plan Assessment/Plan Pulmonary Consultation Note HPI This patient is brought in by her daughter. She has many medical problems to include a cirrhosis and kidney disease. She is brought in by her daughter for altered mental status. Reports that she has recently been admitted to [facility]. She was also in a [facility] facility. However, she is now at home and she is the primary caregiver. She feels that she can care for her. She has been home for about 3 weeks. She reports that over the past couple days she has been more altered. The patient herself has no specific complaints. There is no report of fever or chills. There is no nausea or vomiting. There are no other complaints. Improved mental status Allergies: No Known Allergies Past Medical History: Cirrhosis, DM, HTN, CHF, CKD, Anemia, HL Past Surgical History: pacemaker Social History: Denies: smoking, alcohol use, drug use All Other Systems: negative except mentioned in HPI Physical Exam Vital Signs Noted General Appearance: no apparent distress, GCS 15, non-toxic, lethargic - but arousable to simple questions., obese Head: normocephalic, atraumatic Eyes: bilateral eye normal inspection, bilateral eye PERRL ENT: hearing grossly normal, normal pharynx, no angioedema, normal voice Neck: full range of motion, supple/symm/no masses Respiratory: chest non-tender, lungs clear, normal breath sounds, no respiratory distress, no retraction, no accessory muscle use, speaking full sentences Cardiovascular #1: regular rate, rhythm, no edema Gastrointestinal: normal bowel sounds, non tender, soft, non-distended, no guarding, no rebound Rectal: deferred Musculoskeletal: back normal, gait/station normal, normal range of motion, non- tender, calf tenderness Neurologic: responsive, sensory intact, speech normal, grossly normal Psychiatric: mood/affect normal, no suicidal/homicidal ideation Skin: normal color, no rash, warm/dry, well hydrated Impression: Primary Impression: Hepatic encephalopathy Cirrhosis Diabetes CHF CKD Anemia Hyperglycemia Elevated troponin UTI (urinary tract infection) Plan Antibiotics Monitor Labs Lactulose IVF PRN O2 PRN Laboratory Tests Test 04/02/18 10:50 04/02/18 11:12 04/02/18 11:50 White Blood Count 8.5 K/UL (4.8-10.8) Red Blood Count 2.74 M/UL (4.20-5.40) L Hemoglobin 8.9 G/DL (12.0-16.0) L Hematocrit 26.5 % (37.0-47.0) L Mean Corpuscular Volume 97 FL (80-99) Mean Corpuscular Hemoglobin 32.4 PG (27.0-31.0) H Mean Corpuscular Hemoglobin Concent 33.5 G/DL (32.0-36.0) Red Cell Distribution Width 16.8 % (11.6-14.8) H Platelet Count 63 K/UL (150-450) L Mean Platelet Volume 9.5 FL (6.5-10.1) Neutrophils (%) (Auto) % (45.0-75.0) Lymphocytes (%) (Auto) % (20.0-45.0) Monocytes (%) (Auto) % (1.0-10.0) Eosinophils (%) (Auto) % (0.0-3.0) Basophils (%) (Auto) % (0.0-2.0) Differential Total Cells Counted 100 Neutrophils % (Manual) 72 % (45-75) Lymphocytes % (Manual) 11 % (20-45) L Monocytes % (Manual) 5 % (1-10) Eosinophils % (Manual) 12 % (0-3) H Basophils % (Manual) 0 % (0-2) Band Neutrophils 0 % (0-8) Platelet Estimate Decreased L Platelet Morphology Normal Hypochromasia 1+ Anisocytosis 1+ Sodium Level 135 MMOL/L (136-145) L Potassium Level 4.5 MMOL/L (3.5-5.1) Chloride Level 108 MMOL/L (98-107) H Carbon Dioxide Level 17 MMOL/L (21-32) L Anion Gap 10 mmol/L (5-15) Blood Urea Nitrogen 51 mg/dL (7-18) H Creatinine 3.8 MG/DL (0.55-1.30) H Estimate Glomerular Filtration Rate mL/min (>60) Glucose Level 260 MG/DL (74-106) H Lactic Acid Level 2.30 mmol/L (0.4-2.0) H 2.10 mmol/L (0.66-2.22) Calcium Level 9.6 MG/DL (8.5-10.1) Total Bilirubin 0.7 MG/DL (0.2-1.0) Aspartate Amino Transferase (AST) 6 U/L (15-37) L Alanine Aminotransferase (ALT) 21 U/L (12-78) Alkaline Phosphatase 91 U/L (46-116) Ammonia 149 umol/L (11-32) H Total Creatine Kinase 61 U/L (26-308) Creatine Kinase MB 1.0 NG/ML (0.0-3.6) Creatine Kinase MB Relative Index 1.6 Troponin I 0.079 ng/mL (0.000-0.056) Total Protein 6.3 G/DL (6.4-8.2) L Albumin 2.6 G/DL (3.4-5.0) L Globulin 3.7 g/dL Albumin/Globulin Ratio 0.7 (1.0-2.7) L Urine Color Pale yellow Urine Appearance Clear Urine pH 5 (4.5-8.0) Urine Specific [place] 1.010 (1.005-1.035) Urine Protein Negative (NEGATIVE) Urine Glucose (UA) Negative (NEGATIVE) Urine Ketones Negative (NEGATIVE) Urine Blood 2+ (NEGATIVE) H Urine Nitrite Negative (NEGATIVE) Urine Bilirubin Negative (NEGATIVE) Urine Urobilinogen Normal MG/DL (0.0-1.0) Urine Leukocyte Esterase 3+ (NEGATIVE) H Urine RBC 2-4 /HPF (0 - 2) H Urine WBC 10-15 /HPF (0 - 2) H Urine Squamous Epithelial Cells Few /LPF (NONE/OCC) Urine Bacteria Few /HPF (NONE) Microbiology Date/Time Source Procedure Growth Status 04/02/18 11:50 Nasal Nares Influenza Types A,B Antigen (ELIZA) - Final Complete EKG Diagnostic Results Rate: normal Rhythm: other - Paced ST Segments: no acute changes Chest X-Ray Diagnostic Results : Chest X-Ray Ordered: Yes # of Views/Limited/Complete: 1 View Indication: Other EP Interpretation: Yes Interpretation: no consolidation, no effusion, no pneumothorax, no acute cardiopulmonary disease Impression: No acute disease Electronically Signed by: Catrina Desir DO CT head Impression No acute findings. Specifically no intracranial bleed, mass effect or edema. Subjective ROS Limited/Unobtainable: No Allergies: Coded Allergies: No Known Allergies (Unverified , 10/04/15) Objective Last 24 Hour Vital Signs Date Time Temp Pulse Resp B/P (MAP) Pulse Ox O2 Delivery O2 Flow Rate FiO2 04/06/18 12:21 127/78 04/06/18 12:21 127/78 04/06/18 12:00 98.0 70 20 144/63 (90) 96 04/06/18 12:00 70 04/06/18 09:00 Room Air 04/06/18 08:44 73 145/76 04/06/18 08:00 98.2 73 20 145/76 (99) 98 04/06/18 08:00 71 04/06/18 06:14 119/58 04/06/18 04:21 70 04/06/18 04:00 97.5 76 44 119/58 (78) 100 04/06/18 00:20 71 04/05/18 23:59 142/60 04/05/18 23:57 97.2 76 20 142/60 (87) 97 04/05/18 21:00 Room Air 04/05/18 21:00 72 136/70 04/05/18 20:02 71 04/05/18 20:00 96.8 72 20 136/70 (92) 100 04/05/18 17:51 137/67 04/05/18 16:00 73 04/05/18 16:00 97.8 70 21 137/67 (90) 99 Intake and Output 04/05/18 04/06/18 18:59 06:59 Intake Total 460 ml 1075 ml Output Total 300 ml Balance 460 ml 775 ml Intake Oral 460 ml IV Total 1075 ml Output Urine Total 300 ml # Bowel Movements 2 1 Laboratory Tests 04/06/18 06:40: White Blood Count 6.7, Red Blood Count 2.72L, Hemoglobin 8.6L, Hematocrit 25.9L , Mean Corpuscular Volume 95, Mean Corpuscular Hemoglobin 31.8H, Mean Corpuscular Hemoglobin Concent 33.4, Red Cell Distribution Width 17.6H, Platelet Count 53L, Mean Platelet Volume 7.9, Neutrophils (%) (Auto) , Lymphocytes (%) (Auto) , Monocytes (%) (Auto) , Eosinophils (%) (Auto) , Basophils (%) (Auto) , Differential Total Cells Counted 100, Neutrophils % ( Manual) 63, Lymphocytes % (Manual) 20, Monocytes % (Manual) 8, Eosinophils % ( Manual) 9H, Basophils % (Manual) 0, Band Neutrophils 0, Platelet Estimate DecreasedL, Platelet Morphology Normal, Hypochromasia 1+, Anisocytosis 1+, Sodium Level 141, Potassium Level 4.1, Chloride Level 113H, Carbon Dioxide Level 12L, Anion Gap 16H, Blood Urea Nitrogen 48H, Creatinine 3.5H, Estimat Glomerular Filtration Rate , Glucose Level 178H, Uric Acid 8.7H, Calcium Level 8.4L, Phosphorus Level 3.7, Magnesium Level 1.8, Total Bilirubin 1.1H, Direct Bilirubin 0.4H, Aspartate Amino Transf (AST/SGOT) 19, Alanine Aminotransferase ( ALT/SGPT) 19, Alkaline Phosphatase 79, Ammonia 90H, C-Reactive Protein, Quantitative 1.4H, Pro-B-Type Natriuretic Peptide 09286I, Total Protein 5.6L, Albumin 2.4L, Globulin 3.2, Albumin/Globulin Ratio 0.8L Current Medications Medications (Trade) Dose Ordered Sig/Anum Route PRN Reason Start Time Stop Time Status Last Admin Dose Admin Acetaminophen (Tylenol) 650 mg Q4H PRN ORAL fever 04/02/18 13:45 05/02/18 13:44 Carvedilol (Coreg) 6.25 mg EVERY 12 HOURS ORAL 04/02/18 21:00 05/02/18 20:59 04/06/18 08:44 Cefepime HCl 0.5 gm/Dextrose 55 ml @ 110 mls/hr Q24H IV 04/04/18 17:00 04/11/18 16:59 04/05/18 16:42 Dextrose (Dextrose 50%) 25 ml Q30M PRN IV Hypoglycemia 04/03/18 07:15 05/03/18 07:14 Dextrose (Dextrose 50%) 50 ml Q30M PRN IV Hypoglycemia 04/03/18 07:15 05/03/18 07:14 Hydralazine HCl (Apresoline) 20 mg Q6HR ORAL 04/06/18 18:00 05/03/18 08:59 Insulin Aspart (NovoLOG) BEFORE MEALS AND HS SUBQ 04/03/18 11:30 05/03/18 11:29 04/06/18 12:22 Lactulose (Cephulac) 45 gm Q6HR ORAL 04/06/18 18:00 05/02/18 17:59 Lorazepam (Ativan 2mg/ml 1ml) 0.5 mg Q4H PRN IV For Anxiety 04/02/18 13:45 04/09/18 13:44 Mirtazapine (Remeron) 15 mg BEDTIME ORAL 04/02/18 21:00 05/02/18 20:59 04/05/18 21:00 Morphine Sulfate (Morphine Sulfate) 2 mg Q4H PRN IVP For Pain 04/02/18 13:45 04/09/18 13:44 Nitroglycerin (Ntg) 1 patch Q24H TDERMAL 04/04/18 12:30 05/04/18 12:29 04/06/18 12:21 Octreotide Acetate 500 mcg/ Sodium Chloride 500 ml @ 50 mls/hr Q10H IV 04/05/18 10:30 05/05/18 10:29 04/06/18 06:15 Ondansetron HCl (Zofran) 4 mg Q6H PRN IVP Nausea & Vomiting 04/02/18 13:45 05/02/18 13:44 Pantoprazole (Protonix) 40 mg EVERY 12 HOURS ORAL 04/03/18 21:00 05/03/18 20:59 04/06/18 08:44 Polyethylene Glycol (Miralax) 17 gm HSPRN PRN ORAL Constipation 04/02/18 13:45 05/02/18 13:44 Rifaximin (Xifaxan) 550 mg EVERY 12 HOURS ORAL 04/03/18 21:00 04/10/18 20:59 04/06/18 08:44 Sodium Chloride 1,000 ml @ 75 mls/hr [id number] IV 04/04/18 12:30 05/04/18 12:29 04/06/18 05:21 Sodium Citrate (Bicitra) 30 ml EVERY 6 HOURS ORAL 04/06/18 18:00 05/06/18 17:59 Dhaval Schulz MD Apr 06, 2018 15:11
--- NOTE | 2018-04-06 15:27 | Cardiology Progress Note ---
Assessment/Plan Status: stable, progressing Assessment/Plan Assessment/Plan Status: stable, progressing Assessment/Plan Assessment: 1. Hypertension. 2. Diabetes type 2. 3. Chronic renal failure. 4. Anemia. 5. Cirrhosis of liver 6. Altered mental status Plan: Empiric Abx Cultures paracentesis Echocardiogram - moderate systolic dysfunction LVEF 40%, pacing serial EKG/Troponin physical therapy speech evaluation Transfuse prbc dispo planning Subjective Cardiovascular: Reports: no symptoms Respiratory: Reports: no symptoms Gastrointestinal/Abdominal: Reports: no symptoms Genitourinary: Reports: no symptoms Subjective No acute events, son at bedside, no distress, vitals stable, no bleeding. LVEF: Left ventricular ejection fraction estimated to be 40 %. Objective Last 24 Hour Vital Signs Date Time Temp Pulse Resp B/P (MAP) Pulse Ox O2 Delivery O2 Flow Rate FiO2 04/06/18 12:21 127/78 04/06/18 12:21 127/78 04/06/18 12:00 98.0 70 20 144/63 (90) 96 04/06/18 12:00 70 04/06/18 09:00 Room Air 04/06/18 08:44 73 145/76 04/06/18 08:00 98.2 73 20 145/76 (99) 98 04/06/18 08:00 71 04/06/18 06:14 119/58 04/06/18 04:21 70 04/06/18 04:00 97.5 76 44 119/58 (78) 100 04/06/18 00:20 71 04/05/18 23:59 142/60 04/05/18 23:57 97.2 76 20 142/60 (87) 97 04/05/18 21:00 Room Air 04/05/18 21:00 72 136/70 04/05/18 20:02 71 04/05/18 20:00 96.8 72 20 136/70 (92) 100 04/05/18 17:51 137/67 04/05/18 16:00 73 04/05/18 16:00 97.8 70 21 137/67 (90) 99 General Appearance: no apparent distress, alert EENT: PERRL/EOMI, normal ENT inspection, TMs normal Neck: non-tender, normal alignment, supple, normal inspection, no JVD Rhythm: NSR Cardiovascular: normal peripheral pulses, normal rate, regular rhythm Respiratory/Chest: chest wall non-tender, lungs clear Abdomen: normal bowel sounds, non tender, soft, no organomegaly, no mass Extremities: normal range of motion, non-tender 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 grossly normal Intake and Output 04/05/18 04/06/18 18:59 06:59 Intake Total 460 ml 1075 ml Output Total 300 ml Balance 460 ml 775 ml Intake Oral 460 ml IV Total 1075 ml Output Urine Total 300 ml # Bowel Movements 2 1 Laboratory Tests Test 04/06/18 06:40 White Blood Count 6.7 K/UL (4.8-10.8) Red Blood Count 2.72 M/UL (4.20-5.40) L Hemoglobin 8.6 G/DL (12.0-16.0) L Hematocrit 25.9 % (37.0-47.0) L Mean Corpuscular Volume 95 FL (80-99) Mean Corpuscular Hemoglobin 31.8 PG (27.0-31.0) H Mean Corpuscular Hemoglobin Concent 33.4 G/DL (32.0-36.0) Red Cell Distribution Width 17.6 % (11.6-14.8) H Platelet Count 53 K/UL (150-450) L Mean Platelet Volume 7.9 FL (6.5-10.1) Neutrophils (%) (Auto) % (45.0-75.0) Lymphocytes (%) (Auto) % (20.0-45.0) Monocytes (%) (Auto) % (1.0-10.0) Eosinophils (%) (Auto) % (0.0-3.0) Basophils (%) (Auto) % (0.0-2.0) Differential Total Cells Counted 100 Neutrophils % (Manual) 63 % (45-75) Lymphocytes % (Manual) 20 % (20-45) Monocytes % (Manual) 8 % (1-10) Eosinophils % (Manual) 9 % (0-3) H Basophils % (Manual) 0 % (0-2) Band Neutrophils 0 % (0-8) Platelet Estimate Decreased L Platelet Morphology Normal Hypochromasia 1+ Anisocytosis 1+ Sodium Level 141 MMOL/L (136-145) Potassium Level 4.1 MMOL/L (3.5-5.1) Chloride Level 113 MMOL/L (98-107) H Carbon Dioxide Level 12 MMOL/L (21-32) L Anion Gap 16 mmol/L (5-15) H Blood Urea Nitrogen 48 mg/dL (7-18) H Creatinine 3.5 MG/DL (0.55-1.30) H Estimat Glomerular Filtration Rate mL/min (>60) Glucose Level 178 MG/DL (74-106) H Uric Acid 8.7 MG/DL (2.6-7.2) H Calcium Level 8.4 MG/DL (8.5-10.1) L Phosphorus Level 3.7 MG/DL (2.5-4.9) Magnesium Level 1.8 MG/DL (1.8-2.4) Total Bilirubin 1.1 MG/DL (0.2-1.0) H Direct Bilirubin 0.4 MG/DL (0.0-0.3) H Aspartate Amino Transf (AST/SGOT) 19 U/L (15-37) Alanine Aminotransferase (ALT/SGPT) 19 U/L (12-78) Alkaline Phosphatase 79 U/L (46-116) Ammonia 90 umol/L (11-32) H C-Reactive Protein, Quantitative 1.4 mg/dL (0.00-0.90) H Pro-B-Type Natriuretic Peptide 84913 pg/mL (0-125) H Total Protein 5.6 G/DL (6.4-8.2) L Albumin 2.4 G/DL (3.4-5.0) L Globulin 3.2 g/dL Albumin/Globulin Ratio 0.8 (1.0-2.7) L Dhaval Brizuela MD Apr 06, 2018 15:27
[2018-04-06 16:00] VITALS: BP 141/61
[2018-04-06] MEDS ORDERED: Sodium Citrate 30ml ORAL SCH (18:00)
[2018-04-06] MEDS ORDERED: HydrALAZINE 10mg Tab ORAL SCH (18:00)
[2018-04-06] MEDS ORDERED: Lactulose 20gm/30ml UDC ORAL SCH (18:00)
--- NOTE | 2018-04-08 08:04 | Discharge Summary ---
Discharge Summary Discharge Summary _ DATE OF ADMISSION: 04/02/2018 DATE OF DISCHARGE: 04/06/2018 DISCHARGED BY: Dr. Clay REASON FOR ADMISSION: 72 years old female with past medical history of diabetes mellitus, hypertension , congestive heart failure, pacemaker, liver cirrhosis, anemia, was brought to emergency room by her daughter for altered mental status. Patient was getting progressively altered for the past few days. No fever , no chills. No nausea , no vomiting. Upon evaluation vital signs were stable. Laboratory workup revealed no leukocytosis, hemoglobin 8.9, hematocrit 26.5. Platelet count 63. Chemistry revealed BUN 51, creatinine 3.8. Stable electrolytes. Ammonia level 149. Albumin 2.6. Lactic acid 2.3. Glucose 260. AST 6 ALT 21. INR 2.9 . Urinalysis revealed +3 leukocyte esterase, pyuria and few bacteria. Troponin - 0.079. EKG revealed paced rhythm Chest x-ray revealed no acute cardiopulmonary pathology CT of the head revealed no evidence of acute intracranial hemorrhage, mass effect or cortical edema. Noted atrophy and nonspecific periventricular hypoattenuation suggestive of chronic ischemic microvascular changes. Patient admitted with diagnoses of altered mental status secondary to hepatic encephalopathy, hyperglycemia with diabetes mellitus type 2, renal failure, liver cirrhosis, hypertension, congestive heart failure class III, thrombocytopenia, coagulopathy. CONSULTANTS: clipper machine Dr. Brizuela pulmonary Dr. Schulz GI specialist Dr. Frausto polishing machine tender Dr. Brooks surgery Dr. Acosta psychiatrist [facility]SE: Patient admitted to telemetry floor. Patient started on Lactulose and Xifaxan. Ammonia was trended. Prior to discharge ammonia 90. Vitamin K given for coagulopathy. Patient received 2 units of fresh frozen plasma. INR 1.5 prior to discharge. No evidence of bleeding. Patient started on empiric antibiotic fir UTI and cellulitis. Urine culture revealed Chacha and gram-negative rods. Blood cultures were negative. Influenza screen test was negate. Patient afebrile, no leukocytosis. Antibiotics stopped on discharge. Patient was scheduled for ultrasound guided paracentesis given evidence of abdominal distention and liver cirrhosis. Abdominal ultrasound revealed no evidence of intraperitoneal fluid , despite abdominal distention. Subsequently paracentesis was canceled. Cloth Bin Packer followed. Devlin catheter was inserted for strict intake and output. Renal parameters and electrolytes were closely monitored. Nephrotoxins were avoided. Patient was slowly hydrated . Renal ultrasound revealed no acute findings no hydronephrosis. Due to probable hepatorenal syndrome, patient was started on Midodrine and Sandostatin. Serial troponin showed minimal elevation, likely due to renal failure. No complaints of chest pain, pusle oximetry was stable on room air. Echocardiogram revealed asynchronous septal motion due to pacing , inferior hypokinesis Left ventricular ejection fraction estimated to be 40 %. No evidence of pericardial effusion. Aspirin was stopped due to low platelet count. Nitroglycerin was on board as needed. Lipid panel was stable. Anti-failure regimen with beta-taylor was continued. Hydralazine was added for blood pressure control. Hemoglobin and hematocrit were closely monitored with goal to keep hemoglobin above 7. Anemia workup revealed stable iron ,B12 and folate. High ferritin level. Anemia likely due to chronic kidney and liver disease. . Patient received 1 unit of packed red blood cell. Upon discharge hemoglobin 8.6 ,hematocrit 25.9. Patient started on PPI. Bowel regimen instituted. Blood sugar was managed with a sliding scale of insulin. Hemoglobin A1c -8, not at goal. Patient will need further optimization of anti-glycemic regimen at home. Surgeon followed for stage III sacral pressure ulcer , present on admission. Wound care provided as per surgical recommendations. Continue wound care at home Psychiatrist followed. Patient started on Remeron at nighttime and Seroquel was added on as needed basis. Patient was gradually weaned from Sandostatin. Midodrine was stopped earlier. Patient stabilized. Overall prognosis not favorable. Further plan of care was discussed with patient's son. Continue with Lactulose and Xifaxan. Patient was stable for discharge home with home health services to follow. FINAL DIAGNOSES: Acute renal failure on chronic kidney disease st 3 Liver cirrhosis Hepatorenal syndrome Metabolic encephalopathy (due to renal failure) Toxic encephalopathy (due to elevated ammonia) Hepatic encephalopathy CHF with EF 40% Diabetic nephropathy Diabetes mellitus out of control Anemia of chronic kidney disease Pacemaker UTI Elevated troponin-minimal probably due to renal failure Cellulitis with venous stasis bilateral lower extremity Coagulopathy due to liver cirrhosis Thrombocytopenia due to liver cirrhosis Sacral decubitus stage III , present on admission DISCHARGE MEDICATIONS: See Medication Reconciliation list. DISCHARGE INSTRUCTIONS: Patient was discharged home with home health services. Follow up with primary care provider in one week. I have been assigned to dictate discharge summary for this account. I was not involved in the patient's management. Clementine Arredondo NP Apr 08, 2018 08:04
--- NOTE | 2018-04-09 16:58 | Diagnostic Imaging Report ---
APPROVED REPORT CPT Code: 40345 Present Symptoms RIGHT LEG: Venous imaging reveals recanalized chronic thrombus in the superficial femoral vein. Large collateral vein noted anterior to the superficial femoral artery. The remainder of the deep venous system is within normal limits. There is no evidence of thrombus in the common femoral, popliteal or calf veins. The greater saphenous vein is also within normal limits. Doppler indicates normal spontaneous flow within these segments. LEFT LEG: Venous imaging reveals a patent deep venous system. There is no evidence of thrombus within the femoral, popliteal or tibial segments. The greater saphenous vein is also within normal limits. Doppler indicates normal spontaneous flow within these segments. There is no evidence of acute deep vein thrombosis.
== END 2018-04-06 17:02 | disposition home or self-care (01) | DRG 469 ==
LOC: EDSEX 10:36 → EDBD 10:36 → EMR 12:17 → 2E 13:05 → EDBEDREQ 14:04 → 2E 16:27
PROC: 30233K1 Transfusion of Nonautologous Frozen Plasma into Peripheral Vein, Percutaneous Approach (ICD-10-PCS; principal; 2018-04-03)
PROC: 30233N1 Transfusion of Nonautologous Red Blood Cells into Peripheral Vein, Percutaneous Approach (ICD-10-PCS; 2018-04-05)
DX: N17.9 Acute kidney failure, unspecified (principal); K76.7 Hepatorenal syndrome; G93.41 Metabolic encephalopathy; G92 Toxic encephalopathy; L89.153 Pressure ulcer of sacral region, stage 3; E11.21 Type 2 diabetes mellitus with diabetic nephropathy; D68.4 Acquired coagulation factor deficiency; D69.59 Other secondary thrombocytopenia; N18.3 Chronic kidney disease, stage 3 (moderate); K72.90 Hepatic failure, unspecified without coma; E11.65 Type 2 diabetes mellitus with hyperglycemia; N18.9 Chronic kidney disease, unspecified; D63.1 Anemia in chronic kidney disease; Z95.0 Presence of cardiac pacemaker; N39.0 Urinary tract infection, site not specified; L03.116 Cellulitis of left lower limb; L03.115 Cellulitis of right lower limb; I87.8 Other specified disorders of veins; K74.60 Unspecified cirrhosis of liver; Z79.01 Long term (current) use of anticoagulants; I48.91 Unspecified atrial fibrillation; Z79.84 Long term (current) use of oral hypoglycemic drugs
CPT/HCPCS: 36415; 70450; 71045; 76705; 76770; 80053; 80061; 81003; 82140; 82248; 82270; 82378; 82550; 82553; 82607; 82728; 82746; 82962; 82977; 83036; 83540; 83550; 83605; 83735; 83880; 84100; 84300; 84439; 84443; 84484; 84550; 85007; 85025; 85044; 85610; 85730; 86140; 86710; 86850; 86900; 86901; 86920; 86927; 87040; 87086; 89050; 93005; 93306; 93970; 96361; 96365; 99291; J1815